=== PATIENT | female | born 1930 | race Caucasian/White ===

== ENCOUNTER 2016-08-31 18:16 | Emergency (ER) | payer MEDICARE, BC ==
[~2016-08-31] VITALS: Ht 144.8 cm; Wt 78.9 kg
[2016-08-31] MEDS ORDERED: Norco 7.5mg/325mg tab ORAL ONE (19:15)
[2016-08-31 19:22] VITALS: BP 150/72
--- NOTE | 2016-08-31 22:10 | Emergency Room Report ---
History of Present Illness General Chief Complaint: Multiple Trauma/Fall Source: Patient (Tatianna Soriano) Present Illness HPI 84-year-old female presents emergency department complaining of 10 out of 10 in severity left anterior lower rib cage pain and tenderness status post mechanical trip and fall. She also reports right-sided neck tightness. Patient states this is very mild in comparison to her left-sided rib cage pain. Patient reports pain is worsened with taking deep breaths. This morning patient took half of a 5 mg Percocet which provided little to no relief. Denies numbness tingling or loss of sensation or gross motor movements of the extremities, incontinence of bowel or bladder. Denies CP, Palpitations, LOC, AMS , dizziness, Changes in Vision, Sensation, paresthesias, or a sudden severe headache. (Tatianna Soriano) Allergies: Coded Allergies: PENICILLINS (Verified Allergy, Unknown, 08/31/16) Patient History Past Medical History: see triage record Past Surgical History: none Pertinent Family History: none Now: No Reviewed Nursing Documentation: PMH: Agreed, PSxH: Agreed (Tatianna Soriano) Nursing Documentation-PMH Past Medical History: No History, Except For Hx Hypertension: Yes (Tatianna Soriano) Review of Systems All Other Systems: negative except mentioned in HPI (Tatianna Soriano) Physical Exam Vital Signs Date Time Temp Pulse Resp B/P Pulse Ox O2 Delivery O2 Flow Rate FiO2 08/31/16 18:33 98.4 80 18 165/75 99 Room Air Sp02 EP Interpretation: reviewed, normal General Appearance: no apparent distress, alert, GCS 15, non-toxic Head: normocephalic, atraumatic Eyes: bilateral eye PERRL, bilateral eye normal inspection ENT: hearing grossly normal, normal pharynx, no angioedema, normal voice Neck: full range of motion, no bony tend, supple/symm/no masses, tender lateral - right TTP, in the musculature region, no midline spinous process pain , no obvious deformity, pt. has FROM Respiratory: lungs clear, normal breath sounds, speaking full sentences, other - left lower rib cage Tenderness to palpation, no crepitus, no flail chest, no bruising noted. Cardiovascular #1: regular rate, rhythm, no edema Gastrointestinal: non tender, soft, no guarding, no rebound Rectal: deferred Musculoskeletal: back normal, gait/station normal, normal range of motion, tender - left lower anterior rib ttp. Neurologic: alert, oriented x3, responsive, motor strength/tone normal, sensory intact, speech normal Psychiatric: judgement/insight normal, memory normal, mood/affect normal, no suicidal/homicidal ideation Reflexes: 4+ bicep (R), 4+ bicep (L), 4+ tricep (R), 4+ tricep (L), 4+ knee (R) , 4+ knee (L) Skin: normal color, no rash, warm/dry, well hydrated (Tatianna Soriano) Medical Decision Making PA Attestation Dr. Hebert is my supervising Physician whom patient management has been discussed with. (Tatianna Soriano) Diagnostic Impression: Primary Impression: Fracture of seven ribs of left side Qualified Codes: S22.42XA - Multiple fractures of ribs, left side, initial encounter for closed fracture ER Course Pt. presents to the ED c/o Left lower rib pain 10/10 s/p mechanical trip and fall. Pt also reports right sided neck tightness, states rib pain is most prominent symptom. Denies midline posterior neck pain. Ddx considered but are not limited to Rib Fracture, dislocation, rib cage contusion Vital signs: are WNL, pt. is afebrile H&PE are most consistent with rib musculoskeletal injury will r/o fractures with imaging. ORDERS: - X-ray Left rib Series with PA view - Pending radiology reviews ED INTERVENTIONS: - Hersey PO DISCHARGE: At this time pt. is stable for d/c to home. Will provide printed patient care instructions, and any necessary prescriptions. Care plan and follow up instructions have been discussed with the patient prior to discharge. (Tatianna Soriano P.AGeorgette) ER Course Received signout from BC Soriano to followup rib series Fracture of left 7th rib. No PTX or pleural effusion Rx Lidoderm patch and Rx Hersey for severe pain PMD followup DC home (JOSHUA HERNANDEZ M.D.) Last Vital Signs Date Time Temp Pulse Resp B/P Pulse Ox O2 Delivery O2 Flow Rate FiO2 08/31/16 20:32 98.4 08/31/16 19:22 88 18 150/72 99 Room Air (Tatianna Soriano) Status: improved (JOSHUA HERNANDEZ M.D.) Disposition: HOME, SELF-CARE Scripts Lidocaine (Lidoderm) 1 Each Adh..patch 1 PATCH TOPIC DAILY for 7 Days, #7 PATCH 0 Refills Patch(es) may remain in place for up to 12 hours in any 24-hour period. Prov: JOSHUA HERNANDEZ M.D. 08/31/16 Oxycodone/Acetaminophen 5-325* (PERCOCET 5-325 MG TABLET*) 1 Each Tablet 1 TAB ORAL BID Y for Severe Breakthru Pain (>7) for 3 Days, #10 TAB 0 Refills Prov: JOSUHA HERNANDEZ M.D. 08/31/16 Tatianna Soriano Aug 31, 2016 22:10 JOSHUA HERNANDEZ M.D. Aug 31, 2016 22:37
[2016-08-31] MEDS ORDERED: PERCOCET 5-3251 EACH ORAL (22:21)
[2016-08-31] MEDS ORDERED: LIDODERM700 M1 TOPIC (22:21)
[2016-08-31 22:30] VITALS: BP 149/65
[2016-08-31 22:35] VITALS: BP 149/65
--- NOTE | 2016-09-01 13:41 | Diagnostic Imaging Report ---
\H\CHEST RADIOGRAPH\N\ Indication: Chest pain Technique: Single portable AP view of the chest. Findings: Comparison: None. Suboptimal inspiration and image quality, lordotic projection of the image limiting evaluation. Apparent cephalad subluxation of both humeri narrowing respective subacromial spaces. Apparent widening of left paratracheal soft tissues deviating trachea to right. The remaining bones and extra pulmonary soft tissues, remainder of the cardiomediastinal silhouette, pulmonary vasculature visualized portions of pulmonary parenchyma and pleural surfaces are unremarkable. IMPRESSION: No evidence of acute cardio pulmonary disease, with limitation as described. Upright PA and lateral chest radiographs with better inspiratory effort and optimal technique recommended for more complete evaluation. Apparent widening of the left paratracheal soft tissues with mass effect, may represent ectatic vasculature, enlarged thyroid/mass, or other pathology. Further evaluation warranted. 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 \H\LEFT RIB RADIOGRAPHS\N\ Indications: Left rib cage pain. Technique: 4 views of the left ribs. Findings: Comparison: None. Suboptimal image quality limits evaluation. Apparent fracture anterior aspect left eighth rib. No additional fracture, lytic destruction, periosteal reaction, or other acute skeletal changes are identified. The overlying chest wall soft tissues, underlying pleura and pulmonary parenchyma are unremarkable. IMPRESSION: Suggestion of acute fracture anterior aspect left eighth rib. Correlate clinically.
== END 2016-08-31 22:35 | disposition home or self-care (01) ==
LOC: EMR 22:15
DX: S22.42XA Multiple fractures of ribs, left side, initial encounter for closed fracture (principal); W01.0XXA Fall on same level from slipping, tripping and stumbling without subsequent striking against object, initial encounter; Y93.9 Activity, unspecified; Y92.9 Unspecified place or not applicable; Z88.0 Allergy status to penicillin; I10 Essential (primary) hypertension; M54.2 Cervicalgia
CPT/HCPCS: 99284

== ENCOUNTER 2018-10-11 19:03 | Emergency (ER) | payer MEDICARE, BC ==
[~2018-10-11] VITALS: Ht 137.2 cm; Wt 85.3 kg
[~2018-10-11 19:03] MED LIST: LIDODERM700 M1 TOPIC; PERCOCET 5-3251 EACH ORAL
[2018-10-11] MEDS ORDERED: TRAMADOL HCL100 M2 ORAL (19:19)
[2018-10-11] MEDS ORDERED: HYDRALAZIN20 MG/1 ML IJ (19:19)
[2018-10-11] MEDS ORDERED: BYSTOLIC20 MG ORAL (19:19)
[2018-10-11] MEDS ORDERED: LEXAPRO5 MG ORAL (19:19)
[2018-10-11] MEDS ORDERED: NORCO 5-325 TA1 EACH ORAL (19:19)
[2018-10-11] MEDS ORDERED: SPIRONOLACTONE1 GM MC (19:19)
[2018-10-11] MEDS ORDERED: CLONIDINE HCL0.2 MG PO (19:19)
[2018-10-11] MEDS ORDERED: LOVASTATIN40 MG ORAL (19:19)
[2018-10-11] MEDS ORDERED: METOLAZONE2.5 MG PO (19:19)
[2018-10-11] MEDS ORDERED: ASPIR 8181 MG ORAL (19:19)
[2018-10-11] MEDS ORDERED: FUROSEMIDE20 M1 ORAL (19:19)
--- NOTE | 2018-10-11 19:22 | NUR ---
ED Nurse Note: Received report. Pt from home, AAOx4, ambulatory, c/o pain on left side s/p fall 4 hrs ago. Pt's caregiver states she has bruising on left backside and left arm. Will assess and carry out ER MD's orders.
--- NOTE | 2018-10-11 19:29 | Emergency Room Report ---
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 reports mechanical fall as well Patient however was having evidence of increased bruising on the left hip and with the pain there were concerning came to the ER Denies any chest pain denies any head injury denies any focal weakness Denies any vomiting or diarrhea Allergies: Coded Allergies: PENICILLINS (Verified Allergy, Unknown, 08/31/16) Patient History Past Medical History: see triage record Pertinent Family History: none Last Menstrual Period: NA Now: No : 2 Para: 2 Reviewed Nursing Documentation: PMH: Agreed; PSxH: Agreed Nursing Documentation-PMH Hx Cardiac Problems: Yes - CHF Hx Hypertension: Yes Hx Diabetes: Yes Hx Neurological Problems: Yes - sciatica at left side Review of Systems All Other Systems: negative except mentioned in HPI Physical Exam Vital Signs Date Time Temp Pulse Resp B/P (MAP) Pulse Ox O2 Delivery O2 Flow Rate FiO2 10/11/18 19:05 98.1 72 17 111/65 (80) 96 Room Air Sp02 EP Interpretation: reviewed, normal General Appearance: no apparent distress Head: normocephalic, atraumatic Eyes: bilateral eye PERRL, bilateral eye EOMI ENT: hearing grossly normal, normal pharynx Neck: supple Respiratory: lungs clear, normal breath sounds, no retraction Cardiovascular #1: regular rate, rhythm Gastrointestinal: non tender, soft Musculoskeletal: other - Evidence of large hematoma left hip region, small hematoma left posterior scapular region no midline tenderness Neurologic: alert, oriented x3, responsive Skin: other - Ecchymosis and bruising as noted above, more extensive left hip region Lymphatic: no adenopathy Medical Decision Making Labs Test 10/11/18 20:15 White Blood Count 13.1 K/UL (4.8-10.8) Red Blood Count 3.54 M/UL (4.20-5.40) Hemoglobin 11.5 G/DL (12.0-16.0) Hematocrit 32.0 % (37.0-47.0) Mean Corpuscular Volume 90 FL (80-99) Mean Corpuscular Hemoglobin 32.6 PG (27.0-31.0) Mean Corpuscular Hemoglobin Concent 36.1 G/DL (32.0-36.0) Red Cell Distribution Width 11.3 % (11.6-14.8) Platelet Count 167 K/UL (150-450) Mean Platelet Volume 7.0 FL (6.5-10.1) Neutrophils (%) (Auto) 73.4 % (45.0-75.0) Lymphocytes (%) (Auto) 14.2 % (20.0-45.0) Monocytes (%) (Auto) 11.2 % (1.0-10.0) Eosinophils (%) (Auto) 0.5 % (0.0-3.0) Basophils (%) (Auto) 0.7 % (0.0-2.0) Prothrombin Time 10.0 SEC (9.30-11.50) Prothromb Time International Ratio 0.9 (0.9-1.1) Activated Partial Thromboplast Time 18 SEC (23-33) Sodium Level 138 MMOL/L (136-145) Potassium Level 3.0 MMOL/L (3.5-5.1) Chloride Level 97 MMOL/L (98-107) Carbon Dioxide Level 35 MMOL/L (21-32) Anion Gap 6 mmol/L (5-15) Blood Urea Nitrogen 55 mg/dL (7-18) Creatinine 2.2 MG/DL (0.55-1.30) Estimat Glomerular Filtration Rate mL/min (>60) Glucose Level 144 MG/DL (74-106) Calcium Level 9.6 MG/DL (8.5-10.1) Last Vital Signs Date Time Temp Pulse Resp B/P (MAP) Pulse Ox O2 Delivery O2 Flow Rate FiO2 10/11/18 19:05 98.1 72 17 111/65 (80) 96 Room Air Sara Hebert DO Oct 11, 2018 19:29
[2018-10-11 19:43] VITALS: BP 115/63
--- NOTE | 2018-10-11 20:24 | NUR ---
ED Nurse Note: Pt's caregiver told me pt took 50mg of Tramadol and two tylenol PO Rx around noon today 10/11/18. Pt asking for pain Rx now with pain 11/16. Will notify ER MD.
[2018-10-11 20:44] LABS: INR 0.9 (0.9-1.1)
[2018-10-11 20:45] LABS: BASOPHILS % (AUTO) 0.7 % (0.0-2.0); EOSINOPHILS % (AUTO) 0.5 % (0.0-3.0); HEMOGLOBIN 11.5 G/DL (12.0-16.0); LYMPHOCYTES % (AUTO) 14.2 % (20.0-45.0); MEAN CORPUSCULAR VOLUME 90 FL (80-99); MONOCYTES % (AUTO) 11.2 % (1.0-10.0); NEUTROPHILS % (AUTO) 73.4 % (45.0-75.0); PLATELET COUNT 167 K/UL (150-450); RED BLOOD COUNT 3.54 M/UL (4.20-5.40); RED CELL DISTRIBUTION WIDTH 11.3 % (11.6-14.8); WHITE BLOOD COUNT 13.1 K/UL (4.8-10.8)
[2018-10-11 20:47] LABS: ANION GAP 6 mmol/L (5-15); BLOOD UREA NITROGEN 55 mg/dL (7-18); CALCIUM 9.6 MG/DL (8.5-10.1); CARBON DIOXIDE 35 MMOL/L (21-32); CHLORIDE 97 MMOL/L (98-107); CREATININE 2.2 MG/DL (0.55-1.30); SODIUM 138 MMOL/L (136-145)
--- NOTE | 2018-10-11 21:35 | NUR ---
ED Nurse Note: Pt cleared by health care Provider for discharge. DC instructions/prescription was given and explained to pt's caregiver and they both verbalized understanding of teachings. All medical deviecs such as ID band and IV line removed. Pt is AAO x4, ambulatory and left with all personal belongings.
--- NOTE | 2018-10-12 10:02 | Diagnostic Imaging Report ---
Indication: Chest pain. Trauma Technique: Continuous helical transaxial imaging of the chest was obtained from the thoracic inlet to the upper abdomen. No intravenous contrast was administered. Coronal 2-D reformats were also obtained. Total Dose length Product (DLP): 898.[address] Dose Index Volume (CTDIvol): 27.17 mGy Comparison: none Findings: There are moderate compression fracture deformities of the T6 and T7 vertebra which appears sclerotic. These are likely old. There is a compression fracture of the superior endplate of T4 also probably old. No soft tissue swelling is demonstrated. Please correlate clinically with regard to the injury described. At the right lung base there is a area of platelike atelectasis and more ill-defined density which may be scarring. Small amount of bronchiectasis is noted. Coronary and aortic calcifications are noted consistent with atherosclerotic disease. There are old bilateral rib fractures. No acute fractures are identified. Visualized part of the upper abdomen demonstrates small fatty lesions within both kidneys consistent with angiomyolipomata. These are not fully evaluated on the current study. There is a hiatal hernia. There is a 2.5 x 1.6 cm hypodensity in the right thyroid lobe. IMPRESSION: No acute injury identified. Old fractures involving the T4, T6 and T7 vertebra. Theoretically acute on chronic injury could be present. Correlate clinically. Multiple old rib fractures. Right posterior basilar atelectasis and scarring. Atherosclerotic disease. 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 Hiatal hernia. Right thyroid nodule. Consider ultrasound evaluation. [facility] has communicated the preliminary results to the Emergency Department. Their findings are largely concordant with this report. The CT scanner at [facility] is accredited by the [employer] and the scans are performed using dose optimization techniques as appropriate to a performed exam including Automatic Exposure control.
--- NOTE | 2018-10-12 10:14 | Diagnostic Imaging Report ---
Indication: Abdominal pain Technique: Continuous helical transaxial imaging of the pelvis was obtained from the iliac crest to the pubic symphysis. Coronal 2-D reformats were also obtained. Study obtained in a Siemens sensation [address] Intravenous non-ionic contrast was administered. Total Dose length Product (DLP): 671.[address] Dose Index Volume (CTDIvol): 22.28 mGy Comparison: None Findings: There is evidence of a soft tissue contusion lateral to the left hip with subcutaneous reticulation and a partially imaged superficial subcutaneous hematoma just deep to the skin measuring on this exam about 4 x 11 cm. The lateral part of the hematoma is not imaged as it is beyond the field of view. No acute fractures identified. Anterolisthesis demonstrated at L4-5 and L5-S1 with degenerative disc disease vacuum phenomena and facet sclerosis. No malalignment of the hips identified. There is a right inguinal hernia containing fat. Arterial vascular calcifications are present. Uterus is absent. IMPRESSION: No acute fracture. Superficial left lateral hematoma. Other incidental findings as above The CT scanner at [facility] is accredited by the [employer] and the scans are performed using dose optimization techniques as appropriate to a performed exam including Automatic Exposure control.
== END 2018-10-11 21:35 | disposition home or self-care (01) ==
LOC: EMR 21:32 → EDBD 21:32 → EMR 21:35
DX: M25.552 Pain in left hip (principal); Z88.0 Allergy status to penicillin; E11.9 Type 2 diabetes mellitus without complications; I11.0 Hypertensive heart disease with heart failure; I50.9 Heart failure, unspecified; S70.02XA Contusion of left hip, initial encounter; W19.XXXA Unspecified fall, initial encounter; Y93.9 Activity, unspecified; Y92.9 Unspecified place or not applicable
CPT/HCPCS: 36415; 71250; 72192; 80048; 85025; 85610; 85730; 99284; J8499

== ENCOUNTER 2019-01-14 18:59 | Emergency (ER) | payer MEDICARE, BC ==
[~2019-01-14] VITALS: Ht 152.4 cm; Wt 84.8 kg
[~2019-01-14 18:59] MED LIST changes: +ASPIR 8181 MG ORAL; +BYSTOLIC20 MG ORAL; +CLONIDINE HCL0.2 MG PO; +FUROSEMIDE20 M1 ORAL; +HYDRALAZIN20 MG/1 ML IJ; +LEXAPRO5 MG ORAL; +LOVASTATIN40 MG ORAL; +METOLAZONE2.5 MG PO; +NORCO 5-325 TA1 EACH ORAL; +SPIRONOLACTONE1 GM MC; +TRAMADOL HCL100 M2 ORAL
[2019-01-14 19:16] VITALS: BP 123/76
--- NOTE | 2019-01-14 19:17 | NUR ---
ED Nurse Note: Pt ambulated to ED from home c/o sore throat x2 days as well as reported 100.4 fever at home, pt took 1k mg of tylenol at 1800, fever has since subsided. Pt denies pain at this time. VSS, Pt is A&Ox4
--- NOTE | 2019-01-14 19:33 | Emergency Room Report ---
History of Present Illness General Chief Complaint: Sore Throat Source: Patient Present Illness HPI 87 YO is brought to the emergency department by caregiver for 7 out of 10 in severity sore throat x 3 days with fever of 101 last night. Patient states that her throat has began to resolve however she continues to have moderate amount of mucus stuck in her throat and she is now having a cough. Pt. also reports right ear discomfort x 1 day. Patient with history of CHF and peripheral edema as well as high blood pressure and rheumatoid arthritis. She denies feeling short of breath, dyspnea, or orthopnea. She denies neck pain/ stiffness, abdominal pain or urinary symptoms. Per caregiver, pt. was in SNF rehab 10 weeks ago. Pt. received injections to the knees bilaterally for her OA 2 days ago. Denies knee pain, swelling, tenderness or erythema. Denies CP, Palpitations, LOC, AMS, dizziness, Changes in Vision, Sensation, paresthesias, or a sudden severe headache. Pt. denies worsening of pedal edema. She takes torsemide, spironolactone and metolazone. Per covering machine operator pt. has appt. with PCP on Wednesday. Pt. denies weakness or increased fatigue. No other aggravating or relieving factors at this time. Allergies: Coded Allergies: PENICILLINS (Verified Allergy, Unknown, 08/31/16) Patient History Past Medical History: see triage record Past Surgical History: none Pertinent Family History: none Last Menstrual Period: n/a Now: No Immunizations: UTD Reviewed Nursing Documentation: PMH: Agreed; PSxH: Agreed Nursing Documentation-PMH Hx Cardiac Problems: Yes - CHF Hx Hypertension: Yes Hx Diabetes: Yes Hx Neurological Problems: Yes - Rhumatoid Arthritis Review of Systems All Other Systems: negative except mentioned in HPI Physical Exam Vital Signs Date Time Temp Pulse Resp B/P (MAP) Pulse Ox O2 Delivery O2 Flow Rate FiO2 01/14/19 19:04 98.2 72 18 123/76 (92) 98 Room Air Sp02 EP Interpretation: reviewed, normal General Appearance: no apparent distress, alert, GCS 15, non-toxic Head: normocephalic, atraumatic Eyes: bilateral eye normal inspection, bilateral eye PERRL ENT: hearing grossly normal, normal voice, TMs + canals normal, uvula midline, moist mucus membranes, pharyngeal erythema, other - no tonsillar swelling or exudates Neck: full range of motion, no meningismus Respiratory: chest non-tender, lungs clear, normal breath sounds, no rhonchi, no respiratory distress, no accessory muscle use, no wheezing, speaking full sentences Cardiovascular #1: regular rate, rhythm, no JVD, edema - 2+ non-pitting edema of bilateral LE's from Knees down Musculoskeletal: back normal, gait/station normal, normal range of motion, non- tender Neurologic: alert, oriented x3, responsive, motor strength/tone normal, sensory intact, speech normal, grossly normal Psychiatric: judgement/insight normal Lymphatic: no adenopathy Medical Decision Making PA Attestation Dr. Mayorga is my supervising Physician whom patient management has been discussed with. Diagnostic Impression: Primary Impression: Atypical pneumonia Additional Impression: Sore throat ER Course 87 YO is brought to the emergency department by caregiver for 7 out of 10 in severity sore throat x 3 days with fever of 101 last night. Patient states that her throat has began to resolve however she continues to have moderate amount of mucus stuck in her throat and she is now having a cough. Pt. also reports right ear discomfort x 1 day. Patient with history of CHF and peripheral edema as well as high blood pressure and rheumatoid arthritis. She denies feeling short of breath, dyspnea, or orthopnea. She denies neck pain/ stiffness, abdominal pain or urinary symptoms. Per caregiver, pt. was in SNF rehab 10 weeks ago. Pt. received injections to the knees bilaterally for her OA 2 days ago. Denies knee pain, swelling, tenderness or erythema. Denies CP, Palpitations, LOC, AMS, dizziness, Changes in Vision, Sensation, paresthesias, or a sudden severe headache. Pt. denies worsening of pedal edema. She takes torsemide, spironolactone and metolazone. Per covering machine operator pt. has appt. with PCP on Wednesday. Pt. denies weakness or increased fatigue. No other aggravating or relieving factors at this time. Ddx considered but are not limited to URI, pneumonia, CHF,PE, strep pharyngitis , laryngitis, RELOCATION COUNSELOR, meningitis, reactive airway just to name a few. Vital signs: Pt. is afebrile, the remaining VS are WNL H&PE are most consistent with URI- no meningeal signs, oropharynx does not have exudates. lungs are CTA. Pt. is not in acute distress, non-toxic in appearance. Not having difficulty breathing and is able to clearly articulate thoughts/concerns. ORDERS: none required at this time, the diagnosis is clinical ED INTERVENTIONS: None required at this time. - Given pt. hx of multiple comorbidities due to cc cough and fever, standard of care is to provide abx. Pt. has follow up scheduled already. I feel she is stable for outpatient treatment with close follow up. Pt. has caregiver as well. Both pt. and covering machine operator are given strict ED return precautions such as persistent fever, difficulty breathing/ wheezing, or increased swelling of the LE's. DISCHARGE: At this time pt. is stable for d/c to home. Will provide printed patient care instructions, and any necessary prescriptions. Care plan and follow up instructions have been discussed with the patient prior to discharge. Last Vital Signs Date Time Temp Pulse Resp B/P (MAP) Pulse Ox O2 Delivery O2 Flow Rate FiO2 01/14/19 19:16 98.2 68 18 123/76 98 Room Air Disposition: HOME, SELF-CARE Condition: Stable Scripts Guaifenesin/Dextromethorphan (HM ADULT TUSSIN DM SYRUP) 118 Ml Syrup 5 ML PO Q6HR, #120 ML Prov: Tatianna Soriano 01/14/19 Doxycycline Monohydrate* (DOXYCYCLINE MONOHYDRATE*) 100 Mg Capsule 100 MG ORAL TWICE A DAY for 7 Days, #14 CAP 0 Refills Prov: Tatianna Soriano 01/14/19 Patient Instructions: Peripheral Edema, Upper Respiratory Infection, Adult, [id number] Additional Instructions: Take medications as directed. Follow up with a Primary Care Provider in 3-5 days, even if your symptoms have resolved. --Please review list of primary care clinics, if you do not already have a primary care provider Return sooner to ED if new symptoms occur, or current symptoms become worse. - Please note that this Emergency Department Report was dictated using [employer] technology software, occasionally this can lead to erroneous entry secondary to interpretation by the dictation equipment. Tatianna Soriano Jan 14, 2019 19:33
[2019-01-14] MEDS ORDERED: [UNRECOGNIZED DRUG - OTHER] PO (19:42)
[2019-01-14] MEDS ORDERED: DOXYCYCLINE MO100 MG ORAL (19:42)
[2019-01-14 19:45] VITALS: BP 123/76
--- NOTE | 2019-01-14 19:49 | NUR ---
ED Discharge Note: PRESCRIPTIONS AND DISCHARGE PAPERWORK EXPLAINED TO PT. PT VERBALIZES UNDERSTANDING AND ALL QUESTIONS ANSWERED. PRESCRIPTIONS AND DISCHARGE PAPERWORK GIVEN TO PT AND ID WRISTBAND REMOVED. PT WALKED OUT OF ER WITH STEADY GAIT AND ALL BELONGINGS.
== END 2019-01-14 19:45 | disposition home or self-care (01) ==
LOC: EMR 19:23
DX: J18.9 Pneumonia, unspecified organism (principal); J02.9 Acute pharyngitis, unspecified; Z88.0 Allergy status to penicillin; I11.0 Hypertensive heart disease with heart failure; I50.9 Heart failure, unspecified; E11.9 Type 2 diabetes mellitus without complications; M06.9 Rheumatoid arthritis, unspecified
CPT/HCPCS: 99282

== ENCOUNTER 2019-03-11 16:22 | Inpatient (IN) | payer MEDICARE, BC ==
[~2019-03-11] VITALS: Ht 144.8 cm; Wt 78.5 kg
[~2019-03-11 16:22] MED LIST changes: +DOXYCYCLINE MO100 MG ORAL; +[UNRECOGNIZED DRUG - OTHER] PO
[2019-03-11 16:45] VITALS: BP 135/70
--- NOTE | 2019-03-11 16:45 | NUR ---
ED Nurse Note: Patient walked into ED accompanied by caregiver c/o skin rash/ abscess located towards her right shoulder, no open lesions noten on her skin however she presents with redness that goes from the lower part of her right arm to her right shoulder, patients skin is intact, rates her pain a 8/10 pain. patient does have wrinkled skin that is very thin. patient placed on a campus monitor, will continue to monitor
[2019-03-11] MEDS ORDERED: Bacitracin Oint UD TOPIC ONE (17:00)
[2019-03-11] MEDS ORDERED: DiphenhydrAMINE 50mg/ml Inj IVP ONE (17:00)
[2019-03-11] MEDS ORDERED: Piperacillin/Tazobactam 3.375 GM in NS 110 ML IVPB ONE (17:00)
[2019-03-11] MEDS ORDERED: Vancomycin 1 GM in NS 275 ML IV ONE (17:00)
[2019-03-11] MEDS ORDERED: Tetanus/Diptheria/Pertussis IM ONE (17:00)
--- NOTE | 2019-03-11 17:28 | NUR ---
ED Nurse Note: miroslava-Krystal
[2019-03-11 17:35] LABS: BASOPHILS % (AUTO) 1.3 % (0.0-2.0); HEMOGLOBIN 12.9 G/DL (12.0-16.0); LYMPHOCYTES % (AUTO) 19.9 % (20.0-45.0); MEAN CORPUSCULAR VOLUME 91 FL (80-99); MONOCYTES % (AUTO) 12.6 % (1.0-10.0); NEUTROPHILS % (AUTO) 62.2 % (45.0-75.0); PLATELET COUNT 191 K/UL (150-450); RED BLOOD COUNT 3.95 M/UL (4.20-5.40); RED CELL DISTRIBUTION WIDTH 12.9 % (11.6-14.8); WHITE BLOOD COUNT 8.5 K/UL (4.8-10.8)
--- NOTE | 2019-03-11 17:39 | Emergency Room Report ---
History of Present Illness General Chief Complaint: Skin Rash/Abscess Source: Patient, Caregiver Present Illness HPI Patient presents with infection of the right shoulder. She was seen at a clinic and given a prescription for Keflex. She is been taking that medicine. She denies any fevers or chills. She denies pain in the area but says that its itching. She is not sure when her last tetanus vaccination was. The redness seems to be swelling even though she is taking Keflex. Patient has significant ankle edema. She denies any calf tenderness. She is on Lasix and potassium. She also has significant bruising in many areas of her body. According to her med recon she is not taking blood thinners at this time aside from aspirin. The patient has a history of diabetes and also rheumatoid arthritis. Apparently she was admitted at [facility] recently with problems with her heart and her kidneys. No sore throat, chest pain, palpitations, nausea, vomiting, diarrhea, dysuria, abdominal pain, shortness of breath, depression, anxiety, visual changes, dizziness, headache. 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 Last Menstrual Period: N/A Reviewed Nursing Documentation: PMH: Agreed; PSxH: Agreed Nursing Documentation-PMH Hx Cardiac Problems: Yes - CHF Hx Hypertension: Yes Hx Diabetes: Yes History Of Psychiatric Problem: Yes Hx Neurological Problems: Yes - Rhumatoid Arthritis Review of Systems All Other Systems: negative except mentioned in HPI Physical Exam Vital Signs Date Time Temp Pulse Resp B/P (MAP) Pulse Ox O2 Delivery O2 Flow Rate FiO2 03/11/19 16:38 98.2 87 18 146/68 (94) 98 Room Air Sp02 EP Interpretation: reviewed, normal General Appearance: no apparent distress, alert, GCS 15, non-toxic, Chronically Ill Head: normocephalic Eyes: bilateral eye normal inspection, bilateral eye PERRL, bilateral eye EOMI ENT: moist mucus membranes Neck: supple Respiratory: lungs clear, normal breath sounds Cardiovascular #1: regular rate, rhythm, edema - 3+ pitting bilateral lower extremities Cardiovascular #2: 2+ radial (R), 2+ dorsalis pedis (R), 2+ dorsalis pedis (L) Gastrointestinal: normal inspection, normal bowel sounds, non tender, no mass, non-distended, overweight Genitourinary: no CVA tenderness Musculoskeletal: back normal, normal range of motion, no calf tenderness, Bal 's Sign negative Neurologic: alert, motor strength/tone normal, sensory intact, cerebellar normal, speech normal, oriented - X2 Psychiatric: mood/affect normal Skin: Ecchymosis/Bruising - Legs arms, other - Erythematous area right shoulder anteriorly with an area of induration of the lateral chest. No fluctuance Medical Decision Making Diagnostic Impression: Primary Impression: Cellulitis of right shoulder Additional Impressions: Failure of outpatient antibiotics Right heart failure Qualified Codes: I50.812 - Chronic right heart failure Renal insufficiency Multiple bruises ER Course Patient presents with cutaneous infection right shoulder and breast area despite outpatient treatment with Keflex. Differential includes extent organism , abscess, bacteremia, atypical organism, MRSA amongst others. The patient will be evaluated with EKG, chest x-ray and labs. The lesion itself does not feel fluctuant and therefore this appears more like cellulitis. The fact that she is on Keflex and the infection is worsening IV antibiotics are indicated. She will not receive IV hydration as she appears to be total body sodium overloaded. She will receive a dose of Benadryl. Tetanus is indicated. Sinus rhythm with first-degree AV block. Chest x-ray with increased interstitial tyler. No infiltrates. Labs with normal white count. Elevated BUN and creatinine. Elevated BNP. Patient tolerated antibiotics and with decreased itching. Discussed with patient's son. Admit MedSurdaja Ramos. Laboratory Tests Test 03/11/19 17:20 03/11/19 18:20 White Blood Count 8.5 K/UL (4.8-10.8) Red Blood Count 3.95 M/UL (4.20-5.40) L Hemoglobin 12.9 G/DL (12.0-16.0) Hematocrit 36.0 % (37.0-47.0) L Mean Corpuscular Volume 91 FL (80-99) Mean Corpuscular Hemoglobin 32.5 PG (27.0-31.0) H Mean Corpuscular Hemoglobin Concent 35.7 G/DL (32.0-36.0) Red Cell Distribution Width 12.9 % (11.6-14.8) Platelet Count 191 K/UL (150-450) Mean Platelet Volume 7.1 FL (6.5-10.1) Neutrophils (%) (Auto) 62.2 % (45.0-75.0) Lymphocytes (%) (Auto) 19.9 % (20.0-45.0) L Monocytes (%) (Auto) 12.6 % (1.0-10.0) H Eosinophils (%) (Auto) 4.0 % (0.0-3.0) H Basophils (%) (Auto) 1.3 % (0.0-2.0) Prothrombin Time 10.0 SEC (9.30-11.50) Prothrombin Time INR 0.9 (0.9-1.1) PTT 18 SEC (23-33) L Sodium Level 139 MMOL/L (136-145) Potassium Level 4.0 MMOL/L (3.5-5.1) Chloride Level 98 MMOL/L (98-107) Carbon Dioxide Level 32 MMOL/L (21-32) Anion Gap 10 mmol/L (5-15) Blood Urea Nitrogen 97 mg/dL (7-18) H Creatinine 2.0 MG/DL (0.55-1.30) H Estimate Glomerular Filtration Rate mL/min (>60) Glucose Level 132 MG/DL (74-106) H Lactic Acid Level 1.60 mmol/L (0.4-2.0) Calcium Level 9.4 MG/DL (8.5-10.1) Magnesium Level 2.5 MG/DL (1.8-2.4) H Total Bilirubin 0.5 MG/DL (0.2-1.0) Aspartate Amino Transferase (AST) 28 U/L (15-37) Alanine Aminotransferase (ALT) 29 U/L (12-78) Alkaline Phosphatase 40 U/L (46-116) L Total Creatine Kinase 24 U/L (26-308) L Troponin I 0.001 ng/mL (0.000-0.056) Pro-B-Type Natriuretic Peptide 1067 pg/mL (0-125) H Total Protein 6.7 G/DL (6.4-8.2) Albumin 3.9 G/DL (3.4-5.0) Globulin 2.8 g/dL Albumin/Globulin Ratio 1.4 (1.0-2.7) Urine Color Pale yellow Urine Appearance Clear Urine pH 6 (4.5-8.0) Urine Specific [place] 1.010 (1.005-1.035) Urine Protein Negative (NEGATIVE) Urine Glucose (UA) Negative (NEGATIVE) Urine Ketones Negative (NEGATIVE) Urine Blood Negative (NEGATIVE) Urine Nitrite Negative (NEGATIVE) Urine Bilirubin Negative (NEGATIVE) Urine Urobilinogen Normal MG/DL (0.0-1.0) Urine Leukocyte Esterase 1+ (NEGATIVE) H Urine RBC 0 /HPF (0 - 2) Urine WBC 0-2 /HPF (0 - 2) Urine Squamous Epithelial Cells None /LPF (NONE/OCC) Urine Bacteria None /HPF (NONE) EKG Diagnostic Results Rate: normal Rhythm: NSR ST Segments: no acute changes - First degree AV block and LVH Rhythm Strip Diag. Results EP Interpretation: yes Rhythm: NSR, no PVC's, no ectopy Chest X-Ray Diagnostic Results Chest X-Ray Diagnostic Results : Chest X-Ray Ordered: Yes # of Views/Limited/Complete: 1 View Indication: Other EP Interpretation: Yes Interpretation: no consolidation, no effusion Impression: No acute disease Electronically Signed by: Electronically signed by Mani Beyer MD Last Vital Signs Date Time Temp Pulse Resp B/P (MAP) Pulse Ox O2 Delivery O2 Flow Rate FiO2 03/11/19 22:38 140/63 03/11/19 20:57 97.9 85 20 95 03/11/19 20:10 Room Air Status: improved Disposition: ADMITTED INPATIENT Condition: Serious Mani Beyer MD Mar 11, 2019 17:39
[2019-03-11 17:47] LABS: ANION GAP 10 mmol/L (5-15); BLOOD UREA NITROGEN 97 mg/dL (7-18); CALCIUM 9.4 MG/DL (8.5-10.1); CARBON DIOXIDE 32 MMOL/L (21-32); CHLORIDE 98 MMOL/L (98-107); SODIUM 139 MMOL/L (136-145)
[2019-03-11 17:57] LABS: ALANINE AMINOTRANSFERASE 29 U/L (12-78); ALBUMIN 3.9 G/DL (3.4-5.0); ALBUMIN/GLOBULIN RATIO 1.4 (1.0-2.7); ALKALINE PHOSPHATASE 40 U/L (46-116); ASPARTATE AMINO TRANSFERASE 28 U/L (15-37); BILIRUBIN,TOTAL 0.5 MG/DL (0.2-1.0); CREATINE KINASE 24 U/L (26-308)
[2019-03-11 18:21] LABS: INR 0.9 (0.9-1.1)
--- NOTE | 2019-03-11 18:30 | NUR ---
ED Nurse Note: Patient in bed accompanied by caregiver, waiting for room assignment
[2019-03-11 18:56] LABS: APPEARANCE,URINE CLEAR; BILIRUBIN, URINE NEGATIVE (NEGATIVE); COLOR,URINE PALE YELLOW; GLUCOSE, URINE (UA) NEGATIVE (NEGATIVE); KETONES,URINE NEGATIVE (NEGATIVE); LEUKOCYTE ESTERASE ,URINE 1+ (NEGATIVE); NITRITE,URINE NEGATIVE (NEGATIVE); PH,URINE 6 (4.5-8.0); PROTEIN,URINE NEGATIVE (NEGATIVE); UROBILINOGEN,URINE NORMAL MG/DL (0.0-1.0)
--- NOTE | 2019-03-11 19:15 | NUR ---
HAND-OFF: Report given to LISA Baum.
[2019-03-11] MEDS ORDERED: Guaifenesin/DM 10ml syrup ORAL PRN (20:00)
[2019-03-11] MEDS ORDERED: oxyCODONE HCL/Acetaminophen 5/325mg ORAL PRN (20:00)
[2019-03-11] MEDS ORDERED: HYDROcodone/Acetamin 5/325 tab ORAL PRN (20:00)
--- NOTE | 2019-03-11 20:10 | NUR ---
ED Nurse Note: Patient was admited to MS unit due to right shoulder celullitis. Patient was transfered to, the unit via gurney with all belongings. AAO x4, VSS at this time, skin is warm to touch. abstract writer by patient's side.
--- NOTE | 2019-03-11 20:35 | NUR ---
NURSE NOTES: Received patient from ER via fabian. VSS. Caregiver Krystal at the bedside, health history and home medications stated by caregiver. IV access intact, patent, running IV Vanco from ER. Yellow socks on, bed low and locked, patient's own walker at bedside. Patient able to ambulate to bathroom with walker and stand by assist.
[2019-03-11 20:57] VITALS: BP 140/63
[2019-03-11] MEDS ORDERED: Vancomycin 500mg/D5W 110ml IVPB ONE ×2 (22:00)
[2019-03-11] MEDS ORDERED: Piperacillin/Tazobactam 3.375 GM in NS 110 ML IVPB SCH (22:00)
[2019-03-11] MEDS: Atorvastatin 20mg tab ORAL SCH (22:28)
[2019-03-11] MEDS: cloNIDine 0.2mg Tab ORAL SCH (22:38)
[2019-03-12] VITALS (7 sets, daily range): BP systolic 120–157; BP diastolic 56–68
--- NOTE | 2019-03-12 07:11 | NUR ---
HAND-OFF: Report given to LISA Valdivia.
--- NOTE | 2019-03-12 08:00 | NUR ---
NURSE NOTES: Patient is alert and oriented,respirations unlabored.Noted right arm with redness and swelling.dressing noted to the riht shoulde with scant drainage noted,will change dressing.Patient eating breakfast.Bed alarm on,call light within reach.
[2019-03-12] MEDS ORDERED: Tubing IV Secondary IV ONE (08:29)
[2019-03-12] MEDS ORDERED: NS 500ML ONE (08:29)
[2019-03-12 08:38] LABS: ANION GAP 9 mmol/L (5-15); BLOOD UREA NITROGEN 87 mg/dL (7-18); CALCIUM 8.8 MG/DL (8.5-10.1); CARBON DIOXIDE 33 MMOL/L (21-32); CHLORIDE 100 MMOL/L (98-107); CREATININE 2.1 MG/DL (0.55-1.30); PHOSPHORUS 4.3 MG/DL (2.5-4.9); POTASSIUM 2.9 MMOL/L (3.5-5.1); SODIUM 142 MMOL/L (136-145)
[2019-03-12 08:47] LABS: BASOPHILS % (AUTO) 0.8 % (0.0-2.0); EOSINOPHILS % (AUTO) 5.3 % (0.0-3.0); HEMATOCRIT 31.1 % (37.0-47.0); HEMOGLOBIN 10.9 G/DL (12.0-16.0); LYMPHOCYTES % (AUTO) 21.3 % (20.0-45.0); MEAN CORPUSCULAR VOLUME 91 FL (80-99); NEUTROPHILS % (AUTO) 57.6 % (45.0-75.0); PLATELET COUNT 156 K/UL (150-450); RED BLOOD COUNT 3.41 M/UL (4.20-5.40); RED CELL DISTRIBUTION WIDTH 12.8 % (11.6-14.8); WHITE BLOOD COUNT 6.9 K/UL (4.8-10.8)
--- NOTE | 2019-03-12 08:47 | History and Physical ---
History of Present Illness General Date patient seen: Mar 12, 2019 Reason for Hospitalization: Cellulitis Present Illness HPI This is a 88-year-old female with a past medical history of rheumatoid arthritis , CKD, HTN, cor pulmonale who presented to [facility] for 3-day history of a right shoulder erythema, warmth, itching. Failed outpatient Keflex. History provided by caregiver and patient at bedside. No trauma to the shoulder. She did have a prior ecchymoses to mid to distal half of right upper extremity. Denies any trauma. Has never had this before. According to her med recon she is not taking blood thinners at this time aside from aspirin. She was admitted at [facility] recently with problems with her heart and her kidneys. Denies sore throat, chest pain, palpitations, nausea, vomiting, diarrhea, dysuria, abdominal pain, shortness of breath, depression, anxiety, visual changes, dizziness, headache. In the ER the patient had a temperature of 98.2, pulse 87, respirations 18, blood pressure 146/68. WBCs 8.5, hemoglobin 12.9, creatinine 2.0 (unknown baseline). Lactate 1.6, initial troponin negative. Patient started on vancomycin and Zosyn and admitted for cellulitis. Allergies: None Surgical history: None Family history: No history of diabetes or high blood pressure Social history: Denies history of tobacco, alcohol, or drug use Medications: Reviewed Allergies: Coded Allergies: No Known Allergies (Unverified , 03/11/19) Medication History Scheduled Aspirin* (Aspir 81*), 81 MG ORAL DAILY, (Reported) Doxycycline Monohydrate* (Doxycycline Monohydrate*), 100 MG ORAL TWICE A DAY Escitalopram Oxalate (Lexapro), 40 MG ORAL DAILY, (Reported) Furosemide* (Lasix*), 20 MG ORAL DAILY, (Reported) Guaifenesin/Dextromethorphan (Hm Adult Tussin Dm Syrup), 5 ML PO Q6HR Lidocaine Patch* (Lidoderm Patch*), 1 PATCH TOPIC DAILY Lovastatin (Lovastatin), 40 MG ORAL BEDTIME, (Reported) Nebivolol Hcl (Bystolic), 20 MG ORAL DAILY, (Reported) Tramadol Hcl (Tramadol Hcl), 100 MG ORAL DAILY, (Reported) Scheduled PRN Hydrocodone Bit/Acetaminophen 5-325* (Trona 5-325*), 1 TAB ORAL Q6H PRN for For Pain, (Reported) Oxycodone/Acetaminophen 5-325* (Percocet 5-325 Mg Tablet*), 1 TAB ORAL BID PRN for Severe Breakthru Pain (>7) Miscellaneous Medications Clonidine Hcl (Clonidine Hcl), 0.2 MG PO, (Reported) Hydralazine Hcl (Hydralazine Hcl), 25 MG IJ, (Reported) Metolazone (Metolazone), 2.5 MG PO, (Reported) Spironolactone, Micronized (Spironolactone), 25 MG MC, (Reported) Patient History Healthcare decision maker Resuscitation status Full code Advanced Directive on File none Review of Systems Constitutional: Denies: see HPI, chills, sweats, fever, malaise, weakness, other Eye: Denies: see HPI, eye pain, blurred vision, tearing, double vision, nose pain, nose congestion, acuity changes, discharge, other ENT: Denies: see HPI, ear pain, ear discharge, nose pain, nose congestion, throat pain, throat swelling, mouth pain, hearing loss, nasal discharge, other Respiratory: Denies: see HPI, cough, orthopnea, shortness of breath, stridor, wheezing, AVILES, sputum, other Cardiovascular: Denies: see HPI, chest pain, edema, palpitations, syncope, PND , other Gastrointestinal: Denies: see HPI, abdominal pain, constipation, diarrhea, nausea, vomiting, melena, hematemesis, other Genitourinary: Denies: see HPI, discharge, dysuria, frequency, hematuria, pain , retention, incontinence, urgency, vag bleed/dc, other Musculoskeletal: Denies: see HPI, back pain, gout, joint pain, joint swelling, muscle pain, muscle stiffness, other Skin: Reports: other - Rash on right shoulder; Denies: see HPI, rash, change in color, change in hair/nails, dryness, lesions Psychiatric: Denies: see HPI, prior hx, anxiety, depressed feelings, emotional problems, SI, HI, hallucinations, other Neurological: Denies: see HPI, headache, numbness, paresthesia, seizure, tingling, tremors, focal weakness, syncope, dizziness, other Endocrine: Denies: see HPI, excessive sweating, flushing, intolerance to temperature, increased thirst, increased urine, unexplained weight loss, other Hematologic/Lymphatic: Denies: see HPI, anemia, blood clots, easy bleeding, easy bruising, swollen glands, diathesis, other Physical Exam General Appearance: WD/WN, no apparent distress, alert HEENT: normocephalic, atraumatic, anicteric Neck: non-tender, normal alignment, supple Respiratory/Chest: chest wall non-tender, lungs clear, normal breath sounds, no respiratory distress Cardiovascular/Chest: normal peripheral pulses, normal rate, regular rhythm, no JVD Abdomen: normal bowel sounds, non tender, soft, no organomegaly, no mass Extremities: normal range of motion, non-tender, normal inspection, other Skin Exam: other - The area of erythema, warmth, on right lateral shoulder, with one area that appears to be draining a serous fluid. No fluctuance or crepitus noted. Ecchymoses throughout upper and lower extremities Neurologic: co founder and director II-XII grossly normal, no motor/sensory deficits, alert, oriented x 3, responsive Lymphatic: anterior cervical - No lymphadenopathy Last 24 Hour Vital Signs Date Time Temp Pulse Resp B/P (MAP) Pulse Ox O2 Delivery O2 Flow Rate FiO2 03/12/19 04:08 97.3 77 18 135/66 (89) 94 03/12/19 01:07 Room Air 03/11/19 22:38 140/63 03/11/19 20:57 97.9 85 20 140/63 (88) 95 03/11/19 20:10 98.2 80 18 135/70 98 Room Air 03/11/19 16:45 98.2 80 18 135/70 98 Room Air 03/11/19 16:38 98.2 87 18 146/68 (94) 98 Room Air Intake and Output 03/11/19 03/12/19 19:00 07:00 Intake Total 250 ml Balance 250 ml Intake Oral 250 ml # Voids 4 Laboratory Tests Test 03/11/19 17:20 03/11/19 18:20 03/12/19 06:10 White Blood Count 8.5 K/UL (4.8-10.8) Pending Red Blood Count 3.95 M/UL (4.20-5.40) L Pending Hemoglobin 12.9 G/DL (12.0-16.0) Pending Hematocrit 36.0 % (37.0-47.0) L Pending Mean Corpuscular Volume 91 FL (80-99) Pending Mean Corpuscular Hemoglobin 32.5 PG (27.0-31.0) H Pending Mean Corpuscular Hemoglobin Concent 35.7 G/DL (32.0-36.0) Pending Red Cell Distribution Width 12.9 % (11.6-14.8) Pending Platelet Count 191 K/UL (150-450) Pending Mean Platelet Volume 7.1 FL (6.5-10.1) Pending Neutrophils (%) (Auto) 62.2 % (45.0-75.0) Pending Lymphocytes (%) (Auto) 19.9 % (20.0-45.0) L Pending Monocytes (%) (Auto) 12.6 % (1.0-10.0) H Pending Eosinophils (%) (Auto) 4.0 % (0.0-3.0) H Pending Basophils (%) (Auto) 1.3 % (0.0-2.0) Pending Prothrombin Time 10.0 SEC (9.30-11.50) Prothromb Time International Ratio 0.9 (0.9-1.1) Activated Partial Thromboplast Time 18 SEC (23-33) L Sodium Level 139 MMOL/L (136-145) 142 MMOL/L (136-145) Potassium Level 4.0 MMOL/L (3.5-5.1) 2.9 MMOL/L (3.5-5.1) L Chloride Level 98 MMOL/L (98-107) 100 MMOL/L (98-107) Carbon Dioxide Level 32 MMOL/L (21-32) 33 MMOL/L (21-32) H Anion Gap 10 mmol/L (5-15) 9 mmol/L (5-15) Blood Urea Nitrogen 97 mg/dL (7-18) H 87 mg/dL (7-18) H Creatinine 2.0 MG/DL (0.55-1.30) H 2.1 MG/DL (0.55-1.30) H Estimat Glomerular Filtration Rate mL/min (>60) mL/min (>60) Glucose Level 132 MG/DL (74-106) H 111 MG/DL (74-106) H Lactic Acid Level 1.60 mmol/L (0.4-2.0) Calcium Level 9.4 MG/DL (8.5-10.1) 8.8 MG/DL (8.5-10.1) Magnesium Level 2.5 MG/DL (1.8-2.4) H 2.3 MG/DL (1.8-2.4) Total Bilirubin 0.5 MG/DL (0.2-1.0) Aspartate Amino Transf (AST/SGOT) 28 U/L (15-37) Alanine Aminotransferase (ALT/SGPT) 29 U/L (12-78) Alkaline Phosphatase 40 U/L (46-116) L Total Creatine Kinase 24 U/L (26-308) L Troponin I 0.001 ng/mL (0.000-0.056) Pro-B-Type Natriuretic Peptide 1067 pg/mL (0-125) H Total Protein 6.7 G/DL (6.4-8.2) Albumin 3.9 G/DL (3.4-5.0) Globulin 2.8 g/dL Albumin/Globulin Ratio 1.4 (1.0-2.7) Urine Color Pale yellow Urine Appearance Clear Urine pH 6 (4.5-8.0) Urine Specific [place] 1.010 (1.005-1.035) Urine Protein Negative (NEGATIVE) Urine Glucose (UA) Negative (NEGATIVE) Urine Ketones Negative (NEGATIVE) Urine Blood Negative (NEGATIVE) Urine Nitrite Negative (NEGATIVE) Urine Bilirubin Negative (NEGATIVE) Urine Urobilinogen Normal MG/DL (0.0-1.0) Urine Leukocyte Esterase 1+ (NEGATIVE) H Urine RBC 0 /HPF (0 - 2) Urine WBC 0-2 /HPF (0 - 2) Urine Squamous Epithelial Cells None /LPF (NONE/OCC) Urine Bacteria None /HPF (NONE) Phosphorus Level 4.3 MG/DL (2.5-4.9) Height (Feet): 4 Height (Inches): 9.00 Weight (Pounds): 173 Medications Current Medications Medications (Trade) Dose Ordered Sig/Marnie Route PRN Reason Start Time Stop Time Status Last Admin Dose Admin Acetaminophen/ Hydrocodone Bitart ([place]ron[place] 5/325) 1 tab Q6H PRN ORAL For Pain 03/11/19 20:00 03/18/19 19:59 Aspirin (Ecotrin) 81 mg DAILY ORAL 03/12/19 09:00 04/11/19 08:59 Atorvastatin Calcium (Lipitor) 20 mg BEDTIME ORAL 03/11/19 21:00 04/10/19 20:59 03/11/19 22:28 Clonidine HCl (Catapres tab) 0.2 mg BEDTIME ORAL 03/11/19 22:30 04/10/19 22:29 03/11/19 22:38 Dextrose (Dextrose 50%) 25 ml Q30M PRN IV Hypoglycemia 03/11/19 20:15 04/10/19 20:14 Dextrose (Dextrose 50%) 50 ml Q30M PRN IV Hypoglycemia 03/11/19 20:15 04/10/19 20:14 Escitalopram Oxalate (Lexapro) 20 mg DAILY ORAL 03/12/19 09:00 04/11/19 08:59 Furosemide (Lasix) 20 mg DAILY ORAL 03/12/19 09:00 04/11/19 08:59 Guaifenesin/ Dextromethorphan (Robitussin DM Syrup) 5 ml Q6H PRN ORAL cough 03/11/19 20:00 04/10/19 19:59 Metolazone (Zaroxolyn) 2.5 mg DAILY ORAL 03/12/19 09:00 04/11/19 08:59 Nebivolol (Bystolic) 20 mg DAILY ORAL 03/12/19 09:00 04/11/19 08:59 Oxycodone/ Acetaminophen (Percocet 5-325) 1 tab BIDPRN PRN ORAL Severe Breakthru Pain (>7) 03/11/19 20:00 03/18/19 19:59 Piperacillin Sod/ Tazobactam Sod 3.375 gm/Sodium Chloride 110 ml @ 27.5 mls/hr Q12HR IVPB 03/12/19 09:00 03/19/19 08:59 Vancomycin HCl (Vanco rx to dose) 1 ea DAILY PRN MISC Per rx protocol 03/11/19 20:00 04/10/19 19:59 Assessment/Plan Problem List: (1) Cellulitis of right shoulder ICD Codes: L03.113 - Cellulitis of right upper limb SNOMED: 56981827468547751 (2) Multiple bruises ICD Codes: T07.XXXA - Unspecified multiple injuries, initial encounter SNOMED: 987388857 (3) Renal insufficiency ICD Codes: N28.9 - Disorder of kidney and ureter, unspecified SNOMED: 845950438, 664391968 (4) Right heart failure ICD Codes: I50.810 - Right heart failure, unspecified SNOMED: 042832783 Qualifiers: Qualified Codes: I50.812 - Chronic right heart failure Assessment/Plan: This is a 88-year-old female with a past medical history of rheumatoid arthritis , CKD, HTN, cor pulmonale who presented to [facility] for right shoulder cellulitis. #Right shoulder cellulitis. Appears to have purulence. Failed outpatient Keflex. Needs IV antibiotics. Doubt necrotizing fasciitis. No sirs criteria #Multiple ecchymoses throughout upper and lower extremities -Admit to MedSurg -Blood cultures x2 -Ultrasound of right shoulder to evaluate for abscess -X-ray of right shoulder to evaluate for gas -Vancomycin per pharmacy (03/12/19 - ) -Zosyn (03/12/19 - ) -Appreciate general surgery recommendations: Dr. Rizo #Cor pulmonale. Unclear etiology. Stable #Chronic lower extremity swelling secondary to cor pulmonale #HTN -Outpatient follow-up with cardiology. Continue all home meds -Continue home torsemide 40 mg p.o. every morning -Continue home hydralazine 25 mg po QAM -Spironolactone 25mg PO QAM -Metolazone 2.5mg PO Three times per week -ASA 81mg PO daily -Lovastatin 40mg PO QHS -Bystolic 20mg PO QHS -Clonidine 0.2mg PO QHS #Anxiety/depression -Continue Lexapro 40 mg p.o. daily #hypokalemia - replete PRN #Likely CKD. Unknown baseline -continue to monitor -avoid nephrotoxins FENPPX DVTPPX: heparin SQ GI PPX: None needed Fluids: None Diet: Cardiac, 1L fluid restrict (per caregiver) Lines: peripheral PT/OT: pending Code status: Full Dispo: Home with home health Reason for Continued Hospitalization: Cellulitis 72 minutes spent on this encounter. Discussed with RN, patient, caregiver at bedside, and general surgery. > 50% spent on counseling and care coordination. Time of note may not reflect time patient was seen. Nnamdi Alaniz D.O. Mar 12, 2019 08:46
[2019-03-12] MEDS ORDERED: metOLazone 2.5 MG TAB ORAL SCH (09:00)
[2019-03-12] MEDS: Aspirin EC 81mg tab ORAL SCH (09:00)
--- NOTE | 2019-03-12 10:20 | Diagnostic Imaging Report ---
Indication: Reason For Exam: CP Technique: Single AP view of the chest. Comparison: CT chest dated 10/11/2018 Findings: Limited examination due to poor penetration. The cardiomediastinal silhouette is within normal limits. There is elevation of the right hemidiaphragm. Low lung volumes leading to bronchovascular crowding. Likely bibasilar subsegmental atelectasis. No pneumothorax. No large pleural effusion. No acute osseous abnormality. IMPRESSION: Limited examination due to respiration and poor penetration. Likely bibasilar subsegmental atelectasis.
[2019-03-12] MEDS: Zosyn 3.375gm q12h **Extended infusion IVPB SCH ×4 (10:22→21:11)
--- NOTE | 2019-03-12 11:22 | Diagnostic Imaging Report ---
INDICATION: Pain TECHNIQUE: XRAY Shoulder Ltd 1v R Multiple views of the right shoulder were obtained COMPARISON: CT chest dated 10/11/2018 FINDINGS: There is no acute fracture. There is superior displacement of the humeral head with respect to the glenoid. Acromioclavicular joint is maintained. Visualized right lung is clear. No acute soft tissue abnormality. Partially evaluated inferior right anterior rib deformities, likely secondary to old trauma. IMPRESSION: No acute fracture or dislocation. High riding humeral head is often associated with rotator cuff injury. Clinical correlation is recommended.
[2019-03-12] MEDS: HydrALAZINE 25mg tab ORAL SCH (13:23)
--- NOTE | 2019-03-12 13:58 | Consultation ---
History of Present Illness General Date patient seen: Mar 12, 2019 Reason for Hospitalization: Skin Rash/Abscess Present Illness HPI This is a 88-year-old female with multiple medical comorbidities who presents with her daughter to [facility] for evaluation of right upper extremity cellulitis/skin rash/pain and edema and hematoma. Patient was admitted for care and management. On admission was identified to have draining right upper extremity with abnormal skin discoloration, complaints of itchiness , tenderness. Surgery was called to evaluate and assist with care. Patient seen, patient evaluated, chart reviewed. In discussing with the patient and her family member in regards to trauma they deny any recent trauma to the extremity. I asked them when this is first noted and they stated that she was at her primary care physician's office where the blood pressure cuff was placed and she felt it was too tight and in excruciating pain and soon after began to develop ecchymosis of the right upper extremity with some edema. Furthermore states she had some blood drawn from that same extremity as well. No nausea vomiting fever chills. Is not on any blood thinners but on aspirin which is been stopped since. States that her skin is very dry and itchy and this is likely secondary to her diuretics. Allergies: Coded Allergies: No Known Allergies (Unverified , 03/11/19) Medication History Scheduled Aspirin* (Aspir 81*), 81 MG ORAL DAILY, (Reported) Doxycycline Monohydrate* (Doxycycline Monohydrate*), 100 MG ORAL TWICE A DAY Escitalopram Oxalate (Lexapro), 40 MG ORAL DAILY, (Reported) Furosemide* (Lasix*), 20 MG ORAL DAILY, (Reported) Guaifenesin/Dextromethorphan (Hm Adult Tussin Dm Syrup), 5 ML PO Q6HR Lidocaine Patch* (Lidoderm Patch*), 1 PATCH TOPIC DAILY Lovastatin (Lovastatin), 40 MG ORAL BEDTIME, (Reported) Nebivolol Hcl (Bystolic), 20 MG ORAL DAILY, (Reported) Tramadol Hcl (Tramadol Hcl), 100 MG ORAL DAILY, (Reported) Scheduled PRN Hydrocodone Bit/Acetaminophen 5-325* ([place] 5-325*), 1 TAB ORAL Q6H PRN for For Pain, (Reported) Oxycodone/Acetaminophen 5-325* (Percocet 5-325 Mg Tablet*), 1 TAB ORAL BID PRN for Severe Breakthru Pain (>7) Miscellaneous Medications Clonidine Hcl (Clonidine Hcl), 0.2 MG PO, (Reported) Hydralazine Hcl (Hydralazine Hcl), 25 MG IJ, (Reported) Metolazone (Metolazone), 2.5 MG PO, (Reported) Spironolactone, Micronized (Spironolactone), 25 MG MC, (Reported) Patient History History Provided By: Patient, Family Member, Medical Record, PMD Healthcare decision maker Resuscitation status Advanced Directive on File Past Medical/Surgical History Past Medical/Surgical History: (1) Rib fracture (2) Contusion (3) Fall (4) Hematoma (5) Sore throat (6) Atypical pneumonia (7) Multiple bruises (8) Renal insufficiency (9) Right heart failure (10) Cellulitis of right shoulder Review of Systems Review of Symptoms General ROS: no weight loss or fever Psychological ROS: no depression or mood changes, no memory loss Ophthalmic ROS: no visual changes or eye irritation ENT ROS: no nasal congestion, hearing loss, dizziness Allergy and Immunology ROS: no allergic symptoms or urticaria Hematological and Lymphatic ROS: no swollen glands, unusual bleeding or bruising Endocrine ROS: no polyuria, polydipsia, weight changes, temperature intolerance Respiratory ROS: no cough, shortness of breath, or wheezing Cardiovascular ROS: no chest pain or dyspnea on exertion Gastrointestinal ROS: denies abdominal pain, bright red blood in stool. Musculoskeletal ROS: no myalgias or arthralgias Neurological ROS: no TIA or stroke symptoms Dermatological ROS: no new or changing skin lesions, +++rashes +++pruritis Physical Exam Physical Exam General appearance: alert, cooperative, no distress, appears stated age Head: Normocephalic, without obvious abnormality, atraumatic Eyes: conjunctivae/corneas clear. PERRL, EOM's intact. Fundi benign Throat: Lips, mucosa, and tongue normal. Teeth and gums normal Neck: supple, symmetrical, trachea midline, no adenopathy, thyroid: not enlarged, symmetric, no tenderness/mass/nodules, no carotid bruit and no JVD Lungs: clear to auscultation bilaterally Heart: regular rate and rhythm, S1, S2 normal, no murmur, click, rub or gallop Abdomen: soft, non-tender. Bowel sounds normal. No masses, no organomegaly Extremities: extremities RUE traumatic, no cyanosis ++ edema Pulses: 2+ and symmetric Skin: Skin rashes and ecchymosis Neurologic: Grossly normal Last 24 Hour Vital Signs Date Time Temp Pulse Resp B/P (MAP) Pulse Ox O2 Delivery O2 Flow Rate FiO2 03/12/19 13:23 120/56 03/12/19 13:09 74 120/56 (77) 03/12/19 12:00 97.3 76 18 133/67 (89) 96 03/12/19 10:15 71 154/66 (95) 03/12/19 08:00 97.9 63 18 147/66 (93) 93 03/12/19 04:08 97.3 77 18 135/66 (89) 94 03/12/19 01:07 Room Air 03/11/19 22:38 140/63 03/11/19 20:57 97.9 85 20 140/63 (88) 95 03/11/19 20:10 98.2 80 18 135/70 98 Room Air 03/11/19 16:45 98.2 80 18 135/70 98 Room Air 03/11/19 16:38 98.2 87 18 146/68 (94) 98 Room Air Intake and Output 03/11/19 03/12/19 19:00 07:00 Intake Total 250 ml Balance 250 ml Intake Oral 250 ml # Voids 4 Laboratory Tests Test 03/11/19 17:20 03/11/19 18:20 03/12/19 06:10 White Blood Count 8.5 K/UL (4.8-10.8) 6.9 K/UL (4.8-10.8) Red Blood Count 3.95 M/UL (4.20-5.40) L 3.41 M/UL (4.20-5.40) L Hemoglobin 12.9 G/DL (12.0-16.0) 10.9 G/DL (12.0-16.0) L Hematocrit 36.0 % (37.0-47.0) L 31.1 % (37.0-47.0) L Mean Corpuscular Volume 91 FL (80-99) 91 FL (80-99) Mean Corpuscular Hemoglobin 32.5 PG (27.0-31.0) H 31.9 PG (27.0-31.0) H Mean Corpuscular Hemoglobin Concent 35.7 G/DL (32.0-36.0) 34.9 G/DL (32.0-36.0) Red Cell Distribution Width 12.9 % (11.6-14.8) 12.8 % (11.6-14.8) Platelet Count 191 K/UL (150-450) 156 K/UL (150-450) Mean Platelet Volume 7.1 FL (6.5-10.1) 7.1 FL (6.5-10.1) Neutrophils (%) (Auto) 62.2 % (45.0-75.0) 57.6 % (45.0-75.0) Lymphocytes (%) (Auto) 19.9 % (20.0-45.0) L 21.3 % (20.0-45.0) Monocytes (%) (Auto) 12.6 % (1.0-10.0) H 15.0 % (1.0-10.0) H Eosinophils (%) (Auto) 4.0 % (0.0-3.0) H 5.3 % (0.0-3.0) H Basophils (%) (Auto) 1.3 % (0.0-2.0) 0.8 % (0.0-2.0) Prothrombin Time 10.0 SEC (9.30-11.50) Prothromb Time International Ratio 0.9 (0.9-1.1) Activated Partial Thromboplast Time 18 SEC (23-33) L Sodium Level 139 MMOL/L (136-145) 142 MMOL/L (136-145) Potassium Level 4.0 MMOL/L (3.5-5.1) 2.9 MMOL/L (3.5-5.1) L Chloride Level 98 MMOL/L (98-107) 100 MMOL/L (98-107) Carbon Dioxide Level 32 MMOL/L (21-32) 33 MMOL/L (21-32) H Anion Gap 10 mmol/L (5-15) 9 mmol/L (5-15) Blood Urea Nitrogen 97 mg/dL (7-18) H 87 mg/dL (7-18) H Creatinine 2.0 MG/DL (0.55-1.30) H 2.1 MG/DL (0.55-1.30) H Estimat Glomerular Filtration Rate mL/min (>60) mL/min (>60) Glucose Level 132 MG/DL (74-106) H 111 MG/DL (74-106) H Lactic Acid Level 1.60 mmol/L (0.4-2.0) Calcium Level 9.4 MG/DL (8.5-10.1) 8.8 MG/DL (8.5-10.1) Magnesium Level 2.5 MG/DL (1.8-2.4) H 2.3 MG/DL (1.8-2.4) Total Bilirubin 0.5 MG/DL (0.2-1.0) Aspartate Amino Transf (AST/SGOT) 28 U/L (15-37) Alanine Aminotransferase (ALT/SGPT) 29 U/L (12-78) Alkaline Phosphatase 40 U/L (46-116) L Total Creatine Kinase 24 U/L (26-308) L Troponin I 0.001 ng/mL (0.000-0.056) Pro-B-Type Natriuretic Peptide 1067 pg/mL (0-125) H Total Protein 6.7 G/DL (6.4-8.2) Albumin 3.9 G/DL (3.4-5.0) Globulin 2.8 g/dL Albumin/Globulin Ratio 1.4 (1.0-2.7) Urine Color Pale yellow Urine Appearance Clear Urine pH 6 (4.5-8.0) Urine Specific [place] 1.010 (1.005-1.035) Urine Protein Negative (NEGATIVE) Urine Glucose (UA) Negative (NEGATIVE) Urine Ketones Negative (NEGATIVE) Urine Blood Negative (NEGATIVE) Urine Nitrite Negative (NEGATIVE) Urine Bilirubin Negative (NEGATIVE) Urine Urobilinogen Normal MG/DL (0.0-1.0) Urine Leukocyte Esterase 1+ (NEGATIVE) H Urine RBC 0 /HPF (0 - 2) Urine WBC 0-2 /HPF (0 - 2) Urine Squamous Epithelial Cells None /LPF (NONE/OCC) Urine Bacteria None /HPF (NONE) Phosphorus Level 4.3 MG/DL (2.5-4.9) Height (Feet): 4 Height (Inches): 9.00 Weight (Pounds): 173 Medications Current Medications Medications (Trade) Dose Ordered Sig/Marnie Route PRN Reason Start Time Stop Time Status Last Admin Dose Admin Acetaminophen/ Hydrocodone Bitart ([place] 5/325) 1 tab Q6H PRN ORAL For Pain 03/11/19 20:00 03/18/19 19:59 Aspirin (Ecotrin) 81 mg DAILY ORAL 03/12/19 09:00 04/11/19 08:59 Atorvastatin Calcium (Lipitor) 20 mg BEDTIME ORAL 03/11/19 21:00 04/10/19 20:59 03/11/19 22:28 Clonidine HCl (Catapres tab) 0.2 mg BEDTIME ORAL 03/11/19 22:30 04/10/19 22:29 03/11/19 22:38 Dextrose (Dextrose 50%) 25 ml Q30M PRN IV Hypoglycemia 03/11/19 20:15 04/10/19 20:14 Dextrose (Dextrose 50%) 50 ml Q30M PRN IV Hypoglycemia 03/11/19 20:15 04/10/19 20:14 Escitalopram Oxalate (Lexapro) 40 mg DAILY ORAL 03/13/19 09:00 04/12/19 08:59 Guaifenesin/ Dextromethorphan (Robitussin DM Syrup) 5 ml Q6H PRN ORAL cough 03/11/19 20:00 04/10/19 19:59 Hydralazine HCl (Apresoline) 25 mg DAILY ORAL 03/12/19 12:30 04/11/19 12:29 03/12/19 13:23 Metolazone (Zaroxolyn) 2.5 mg 3XW ORAL 03/13/19 09:00 04/12/19 08:59 Nebivolol (Bystolic) 20 mg QHS ORAL 03/13/19 21:00 04/12/19 20:59 Oxycodone/ Acetaminophen (Percocet 5-325) 1 tab BIDPRN PRN ORAL Severe Breakthru Pain (>7) 03/11/19 20:00 03/18/19 19:59 Piperacillin Sod/ Tazobactam Sod 3.375 gm/Sodium Chloride 110 ml @ 27.5 mls/hr Q12HR IVPB 03/12/19 09:00 03/19/19 08:59 03/12/19 10:22 Spironolactone (Aldactone) 25 mg DAILY ORAL 03/12/19 13:00 04/11/19 12:59 Torsemide (Demadex) 40 mg DAILY ORAL 03/13/19 09:00 04/12/19 08:59 Vancomycin HCl (Vanco rx to dose) 1 ea DAILY PRN MISC Per rx protocol 03/11/19 20:00 04/10/19 19:59 Assessment/Plan Problem List: (1) Multiple bruises Assessment & Plan: fragile skin avoid trauma skin protectant ICD Codes: T07.XXXA - Unspecified multiple injuries, initial encounter SNOMED: 920271708 (2) Cellulitis of right shoulder Assessment & Plan: This is a 88-year-old female presents with cellulitis of the right shoulder and upper extremity. Initially thought to be from a traumatic extensive blood pressure obtained in her physician's office. Patient and daughter expressed that she is very fragile thin skin and with the slightest manipulation or injury she develops ecchymosis. She is very fragile. She states that when the blood pressure cuff was placed it was too tight and ever since she has had edema and ecchymosis. There is some small blistering and draining believed to be possible cellulitis. On examination no significant tenderness some edema some ecchymosis but no signs of active infectious process. Labs noted Exam as above Plain films Local wound care with Thera honey and dressings Keep right upper extremity elevated Thank you for allowing me to participate in patient's care will follow the recommendations ICD Codes: L03.113 - Cellulitis of right upper limb SNOMED: 98165591961307268 Ney Rizo Mar 12, 2019 13:58
[2019-03-12] MEDS: Spironolactone 25mg tab ORAL SCH (15:01)
--- NOTE | 2019-03-12 18:00 | NUR ---
NURSE NOTES: Patient resting,right arm elevated on pillow.Bed alarm on,call light within reach.
--- NOTE | 2019-03-12 19:23 | NUR ---
HAND-OFF: Report given to Joanne GONZALEZ.
--- NOTE | 2019-03-12 20:01 | NUR ---
NURSE NOTES: Received patient awake in bed, caregiver iglesia at the bedside. Belongings and walker within reach. Yellow socks on, bed low and locked. IV access asymptomatic, patent, dressing dry and intact. Contacted Dr Alaniz for benadryl as patient is complaining of itchiness on cellulitis site.
[2019-03-12] MEDS: Heparin 5000 units/ml inj SUBQ SCH (21:00)
[2019-03-12] MEDS: cloNIDine 0.2mg Tab ORAL SCH (21:11)
[2019-03-12] MEDS: Atorvastatin 20mg tab ORAL SCH (21:11)
[2019-03-12] MEDS ORDERED: Vancomycin 750mg/NS 275ml IVPB ONE ×2 (23:00)
[2019-03-13] VITALS: BP 130/72
[2019-03-13 04:00] VITALS: BP 128/67
--- NOTE | 2019-03-13 07:03 | NUR ---
HAND-OFF: Report given to LISA Palmer.
[2019-03-13 07:24] LABS: BASOPHILS % (AUTO) 1.1 % (0.0-2.0); EOSINOPHILS % (AUTO) 5.8 % (0.0-3.0); HEMATOCRIT 32.8 % (37.0-47.0); HEMOGLOBIN 11.3 G/DL (12.0-16.0); LYMPHOCYTES % (AUTO) 24.2 % (20.0-45.0); MEAN CORPUSCULAR VOLUME 93 FL (80-99); MONOCYTES % (AUTO) 15.9 % (1.0-10.0); PLATELET COUNT 162 K/UL (150-450); RED BLOOD COUNT 3.52 M/UL (4.20-5.40); RED CELL DISTRIBUTION WIDTH 14.2 % (11.6-14.8); WHITE BLOOD COUNT 7.2 K/UL (4.8-10.8)
--- NOTE | 2019-03-13 07:36 | NUR ---
NURSE NOTES: Patient received sleeping in bed, breathing unlabored on room air. No signs of apparent distress observed. IV on left wrist patent and intact. Walker by the bedside. Call light placed within reach, hob elevated. Bed locked in lowest position, will continue to monitor.
[2019-03-13 07:43] LABS: ANION GAP 4 mmol/L (5-15); BLOOD UREA NITROGEN 73 mg/dL (7-18); CALCIUM 8.9 MG/DL (8.5-10.1); CARBON DIOXIDE 34 MMOL/L (21-32); CHLORIDE 106 MMOL/L (98-107); POTASSIUM 3.4 MMOL/L (3.5-5.1); SODIUM 143 MMOL/L (136-145)
[2019-03-13 08:00] VITALS: BP 130/83
[2019-03-13] MEDS: Zosyn 3.375gm q12h **Extended infusion IVPB SCH ×2 (08:49)
[2019-03-13] MEDS ORDERED: Torsemide 10mg tab ORAL SCH (09:00)
[2019-03-13] MEDS ORDERED: metOLazone 2.5 MG TAB ORAL SCH (09:00)
[2019-03-13] MEDS: Aspirin EC 81mg tab ORAL SCH (09:07)
[2019-03-13] MEDS: Spironolactone 25mg tab ORAL SCH (09:08)
[2019-03-13] MEDS: HydrALAZINE 25mg tab ORAL SCH (09:08)
[2019-03-13] MEDS: Heparin 5000 units/ml inj SUBQ SCH ×2 (09:26→20:41)
--- NOTE | 2019-03-13 11:01 | Surgery Progress Note ---
Surgery Progress Note Subjective Additional Comments Patient seen and examined bedside with daughter present. Ultrasound performed this morning and no significant findings found. No leukocytosis ESR and CRP noted. Full reexamination performed at bedside with the daughter present. It is very interesting distribution of the wound noted on her right upper extremity and shoulder. And further identifying today the axilla medial aspect of the arm are spared. The area and concerns a little bit more red with superficial ecchymosis. After identifying all this information I discussed with the daughter potential sunburns creams or radiation being presented in the area. The daughter explained to me that the mother has many creams at home many of which are very old and have been for some time now. She believes that because the mother is always itching that she may have used some of these older creams. Objective Last 24 Hour Vital Signs Date Time Temp Pulse Resp B/P (MAP) Pulse Ox O2 Delivery O2 Flow Rate FiO2 03/13/19 09:08 130/83 03/13/19 08:00 97.3 79 19 130/83 (99) 98 03/13/19 04:00 98.4 85 18 128/67 (87) 97 03/13/19 00:00 97.9 82 18 130/72 (91) 97 03/12/19 22:11 Room Air 03/12/19 21:11 134/68 03/12/19 20:00 98.4 85 18 126/67 (86) 95 03/12/19 16:00 96.6 65 18 134/68 (90) 95 03/12/19 13:23 120/56 03/12/19 13:09 74 120/56 (77) 03/12/19 12:00 97.3 76 18 133/67 (89) 96 I&O Intake and Output 03/12/19 03/13/19 19:00 07:00 Intake Total 720 ml 650 ml Balance 720 ml 650 ml Intake Oral 720 ml 650 ml # Voids 2 6 Dressing: dry Wound: clean Cardiovascular: RSR Respiratory: clear Abdomen: soft, non-tender, present bowel sounds Extremities: no tenderness, no cyanosis Laboratory Tests Test 03/12/19 18:15 03/13/19 06:10 Random Vancomycin Level 15.8 ug/mL White Blood Count 7.2 K/UL (4.8-10.8) Red Blood Count 3.52 M/UL (4.20-5.40) L Hemoglobin 11.3 G/DL (12.0-16.0) L Hematocrit 32.8 % (37.0-47.0) L Mean Corpuscular Volume 93 FL (80-99) Mean Corpuscular Hemoglobin 32.1 PG (27.0-31.0) H Mean Corpuscular Hemoglobin Concent 34.5 G/DL (32.0-36.0) Red Cell Distribution Width 14.2 % (11.6-14.8) Platelet Count 162 K/UL (150-450) Mean Platelet Volume 7.7 FL (6.5-10.1) Neutrophils (%) (Auto) 53.0 % (45.0-75.0) Lymphocytes (%) (Auto) 24.2 % (20.0-45.0) Monocytes (%) (Auto) 15.9 % (1.0-10.0) H Eosinophils (%) (Auto) 5.8 % (0.0-3.0) H Basophils (%) (Auto) 1.1 % (0.0-2.0) Erythrocyte Sedimentation Rate 4 MM/HR (0-30) Sodium Level 143 MMOL/L (136-145) Potassium Level 3.4 MMOL/L (3.5-5.1) L Chloride Level 106 MMOL/L (98-107) Carbon Dioxide Level 34 MMOL/L (21-32) H Anion Gap 4 mmol/L (5-15) L Blood Urea Nitrogen 73 mg/dL (7-18) H Creatinine 2.0 MG/DL (0.55-1.30) H Estimat Glomerular Filtration Rate mL/min (>60) Glucose Level 120 MG/DL (74-106) H Calcium Level 8.9 MG/DL (8.5-10.1) C-Reactive Protein, Quantitative < 0.4 mg/dL (0.00-0.90) Plan Problems: (1) Multiple bruises Assessment & Plan: fragile skin avoid trauma skin protectant (2) Cellulitis of right shoulder Assessment & Plan: This is a 88-year-old female presents with cellulitis of the right shoulder and upper extremity. Initially thought to be from a traumatic extensive blood pressure obtained in her physician's office. Patient and daughter expressed that she is very fragile thin skin and with the slightest manipulation or injury she develops ecchymosis. She is very fragile. She states that when the blood pressure cuff was placed it was too tight and ever since she has had edema and ecchymosis. There is some small blistering and draining believed to be possible cellulitis. On examination no significant tenderness some edema some ecchymosis but no signs of active infectious process. Labs noted Exam as above Plain films Local wound care with Thera honey and dressings Likely related to skin reaction from medication/cream used prior. Ultrasound labs and imaging noted. Continue with localized skin care as this will likely improve given time. Recommended daughter to discard all or old creams and medicated products at home Keep right upper extremity elevated Thank you for allowing me to participate in patient's care will follow the recommendations Ney Rizo Mar 13, 2019 11:01
[2019-03-13 11:56] VITALS: BP 133/61
--- NOTE | 2019-03-13 12:20 | Diagnostic Imaging Report ---
Indication:Pain and swelling right upper arm Technique: Grayscale and duplex Doppler imaging of the right upper arm performed. Comparison: None Findings: There is clinical concern in the right upper arm anterior to the humerus as there was pain and swelling in this region. There is concern for infection. The ultrasound evaluation shows no evidence of underlying abscess. There may be some subcutaneous edema present. IMPRESSION: Generalized subcutaneous edema presumably on the basis of cellulitis. No abscess identified in the area of clinical concern.
--- NOTE | 2019-03-13 13:20 | NUR ---
NURSE NOTES:WOUND CARE NOTES: Pt presented on admission with large purpuric rash R clavicular extending down dorsal R upper extremity to dorsal R hand. Skin tear noted to R clavicle ,and second skin tear noted to R brachial. Pt stated skin tear R clavicle resulted when she bumped shoulder against door. Second skin tear R clavicle resulted from pt scratching per cab starter. Pt verbalized skin is very itchy. Similar purpuric areas noted to distal ingrid aspects of both R and L tibia. Tx.Plan: Addendum: 03/13/19 at 1345 by Caren Hercules LVN ADDENDUM TO ABOVE WOUND NOTES: Tx.Plan: Apply Aquaphor Oint to Rash R Shoulder, upper ext and bilat lower ext. Twice Daily.
--- NOTE | 2019-03-13 14:04 | General Progress Note ---
Assessment/Plan Problem List: (1) Multiple bruises ICD Codes: T07.XXXA - Unspecified multiple injuries, initial encounter SNOMED: 993451637 (2) Renal insufficiency ICD Codes: N28.9 - Disorder of kidney and ureter, unspecified SNOMED: 439739808, 852626178 (3) Right heart failure ICD Codes: I50.810 - Right heart failure, unspecified SNOMED: 693240031 Qualifiers: Qualified Codes: I50.812 - Chronic right heart failure (4) Contusion ICD Codes: T14.8XXA - Other injury of unspecified body region, initial encounter SNOMED: 470636656 (5) Cellulitis of right shoulder ICD Codes: L03.113 - Cellulitis of right upper limb SNOMED: 38584819875860937 Status: stable Assessment/Plan: This is a 88-year-old female with a past medical history of rheumatoid arthritis , CKD, HTN, cor pulmonale who [place] [facility] [place] cellulitis, ecchymosis, skin tears . #Right shoulder ecchymosis, small tear in skin, severe pruritus. Doubt infection #Multiple ecchymoses throughout upper and lower extremities -MedSurg -Blood cultures x2 -Ultrasound of right shoulder to evaluate for abscess--> Negative per Dr. Rizo -X-ray of right shoulder to evaluate for gas- unremarkable for gas -ESR, CRP negative -Vancomycin per pharmacy (03/12/19 - 03/13) -Zosyn (03/12/19 - 03/13) -Appreciate general surgery recommendations: Dr. iRzo -patient healthcare consulting manager instructed to throw old creams out -Wound care consult -will consider holding ASA -D/W Son Jareth [phone] #Cor pulmonale. Stable #Chronic lower extremity swelling secondary to cor pulmonale #HTN -Outpatient follow-up with cardiology. Continue all home meds -Continue home torsemide 40 mg p.o. every morning, reduce to 20 mg per day -Continue home hydralazine 25 mg po QAM -Spironolactone 25mg PO QAM -Metolazone 2.5mg PO Three times per week -ASA 81mg PO daily -Lovastatin 40mg PO QHS -Bystolic 20mg PO QHS -Clonidine 0.2mg PO QHS -order pr-bnp -review med interactions with pharmacy #Anxiety/depression -Continue Lexapro 40 mg p.o. daily #hypokalemia - replete PRN #Likely CKD. Unknown baseline -continue to monitor -avoid nephrotoxins FENPPX DVTPPX: heparin SQ GI PPX: None needed Fluids: None Diet: Cardiac, 1L fluid restrict (per caregiver) Lines: peripheral PT/OT: pending Code status: Full Dispo: Home with home health Reason for Continued Hospitalization: medication adjustment, general surgery evaluation of multiple wounds 40 minutes spent on this encounter. Discussed with RN, patient, caregiver at bedside, and general surgery. > 50% spent on counseling and care coordination. I spent an additional 31 minutes reviewing chart and old records Time of note may not reflect time patient was seen. Subjective Date patient seen: Mar 13, 2019 ROS Limited/Unobtainable: No Constitutional: Reports: other - very itchy skin ; Denies: no symptoms, chills , diaphoresis, fever, malaise, weakness HEENT: Denies: no symptoms, eye pain, blurred vision, tearing, double vision, ear pain, ear discharge, nose pain, nose congestion, throat pain, throat swelling, mouth pain, mouth swelling, other Cardiovascular: Reports: no symptoms, chest pain, irregular heart rate, lightheadedness, palpitations, syncope, other Respiratory: Denies: no symptoms, cough, SOB with excertion, SOB at rest, sputum, stridor, wheezing, other Gastrointestinal/Abdominal: Denies: no symptoms, abdomen distended, abdominal pain, black stools, tarry stools, blood in stool, constipated, diarrhea, difficulty swallowing, nausea, poor appetite, poor fluid intake, rectal bleeding , vomiting, other Genitourinary: Denies: no symptoms, burning, discharge, frequency, flank pain, hematuria, incontinence, pain, urgency, other Neurologic/Psychiatric: Denies: no symptoms, anxiety, depressed, emotional problems, headache, numbness, paresthesia, pre-existing deficit, seizure, tingling, tremors, weakness, other Endocrine: Denies: no symptoms, excessive sweating, flushing, intolerance to cold, intolerance to heat, increased hunger, increased thirst, increased urine, unexplained weight gain, unexplained weight loss, other Hematologic/Lymphatic: Denies: no symptoms, anemia, easy bleeding, easy bruising, other Allergies: Coded Allergies: No Known Allergies (Unverified , 03/11/19) Subjective seen and examined. correctional food service supervisor at bedside/ Patient c/o itching all over. Per healthcare consulting manager, patient stopped taking ASA due to all the bruises on her skin. Has been using creams that they has at home for itching Objective Last 24 Hour Vital Signs Date Time Temp Pulse Resp B/P (MAP) Pulse Ox O2 Delivery O2 Flow Rate FiO2 03/13/19 11:56 98.6 76 19 133/61 (85) 99 03/13/19 09:08 130/83 03/13/19 09:00 Room Air 03/13/19 08:00 97.3 79 19 130/83 (99) 98 03/13/19 04:00 98.4 85 18 128/67 (87) 97 03/13/19 00:00 97.9 82 18 130/72 (91) 97 03/12/19 22:11 Room Air 03/12/19 21:11 134/68 03/12/19 20:00 98.4 85 18 126/67 (86) 95 03/12/19 16:00 96.6 65 18 134/68 (90) 95 Intake and Output 03/12/19 03/13/19 19:00 07:00 Intake Total 720 ml 650 ml Balance 720 ml 650 ml Intake Oral 720 ml 650 ml # Voids 2 6 Laboratory Tests 03/12/19 18:15: Random Vancomycin Level 15.8 03/13/19 06:10: White Blood Count 7.2, Red Blood Count 3.52L, Hemoglobin 11.3L, Hematocrit 32.8L , Mean Corpuscular Volume 93, Mean Corpuscular Hemoglobin 32.1H, Mean Corpuscular Hemoglobin Concent 34.5, Red Cell Distribution Width 14.2, Platelet Count 162, Mean Platelet Volume 7.7, Neutrophils (%) (Auto) 53.0, Lymphocytes (% ) (Auto) 24.2, Monocytes (%) (Auto) 15.9H, Eosinophils (%) (Auto) 5.8H, Basophils (%) (Auto) 1.1, Erythrocyte Sedimentation Rate 4, Sodium Level 143, Potassium Level 3.4L, Chloride Level 106, Carbon Dioxide Level 34H, Anion Gap 4L , Blood Urea Nitrogen 73H, Creatinine 2.0H, Estimat Glomerular Filtration Rate , Glucose Level 120H, Calcium Level 8.9, C-Reactive Protein, Quantitative < 0.4 Height (Feet): 4 Height (Inches): 9.00 Weight (Pounds): 173 Objective General Appearance: WD/WN, no apparent distress, alert HEENT: normocephalic, atraumatic, anicteric Neck: non-tender, normal alignment, supple Respiratory/Chest: chest wall non-tender, lungs clear, normal breath sounds, no respiratory distress Cardiovascular/Chest: normal peripheral pulses, normal rate, regular rhythm, no JVD Abdomen: normal bowel sounds, non tender, soft, no organomegaly, no mass Extremities: normal range of motion, non-tender, normal inspection, other Skin Exam: large purpuric rash R clavicular extending down dorsal R upper extremity to dorsal R hand. Skin tear noted to R clavicle ,and second skin tear noted to R brachial. 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 Mar 13, 2019 14:04
[2019-03-13 15:50] VITALS: BP 126/59
--- NOTE | 2019-03-13 19:16 | NUR ---
HAND-OFF: Report given to Joanne GONZALEZ.
--- NOTE | 2019-03-13 19:45 | NUR ---
NURSE NOTES: Received patient awake in bed, caregiver Krystal at the bedside. Belongings and walker within reach. Yellow socks on, bed low and locked. IV access asymptomatic, patent, dressing dry and intact.
[2019-03-13 20:00] VITALS: BP 136/74
[2019-03-13] MEDS: cloNIDine 0.2mg Tab ORAL SCH (20:27)
[2019-03-13] MEDS: Atorvastatin 20mg tab ORAL SCH (20:27)
[2019-03-14] VITALS: BP 127/60
[2019-03-14 04:00] VITALS: BP 136/60
--- NOTE | 2019-03-14 07:27 | NUR ---
HAND-OFF: Report given to LISA Ritchie.
--- NOTE | 2019-03-14 07:31 | Cardiology Report ---
APPROVED REPORT EKG Measurement Heart [id number] 230P50 [id number] Sinus rhythm with 1st degree AV block Moderate voltage criteria for LVH, may be normal variant Borderline ECG
[2019-03-14 07:46] LABS: ALANINE AMINOTRANSFERASE 22 U/L (12-78); ALBUMIN 3.3 G/DL (3.4-5.0); ALBUMIN/GLOBULIN RATIO 1.3 (1.0-2.7); ALKALINE PHOSPHATASE 29 U/L (46-116); ANION GAP 9 mmol/L (5-15); ASPARTATE AMINO TRANSFERASE 27 U/L (15-37); BILIRUBIN,TOTAL 0.8 MG/DL (0.2-1.0); BLOOD UREA NITROGEN 67 mg/dL (7-18); CALCIUM 9.5 MG/DL (8.5-10.1); CARBON DIOXIDE 31 MMOL/L (21-32); CHLORIDE 103 MMOL/L (98-107); CREATININE 1.9 MG/DL (0.55-1.30); POTASSIUM 2.9 MMOL/L (3.5-5.1); SODIUM 143 MMOL/L (136-145)
[2019-03-14 08:00] VITALS: BP 139/62
--- NOTE | 2019-03-14 08:07 | NUR ---
NURSE NOTES: Patient awake, alert x3, hard of hearing; IV Left-Hand 24G, flushes well; Right hand ecchymosis; side rails up x2, breaks engaged, bed at lowest position; call light within reach; will keep monitoring;
[2019-03-14] MEDS: Aspirin EC 81mg tab ORAL SCH (08:35)
[2019-03-14] MEDS: Spironolactone 25mg tab ORAL SCH (08:35)
[2019-03-14] MEDS: HydrALAZINE 25mg tab ORAL SCH (08:36)
[2019-03-14] MEDS: Heparin 5000 units/ml inj SUBQ SCH (08:39)
[2019-03-14] MEDS ORDERED: Torsemide 10mg tab ORAL SCH (09:00)
[2019-03-14 12:00] VITALS: BP 126/62
[2019-03-14] MEDS ORDERED: TORSEMIDE10 MG ORAL (14:39)
--- NOTE | 2019-03-14 14:40 | Discharge Summary ---
Discharge Summary Hospital Course Date of Admission Mar 11, 2019 at 18:05 Date of Discharge 03/14/2019 Admitting Diagnosis cellulitis R shoulder HPI Sasha Crouch is a 88 year old female who was admitted on Mar 11, 2019 at 18: 05 for Cellulitis Right Shoulder Consultations General surgery: Dr. Rizo Procedures Ultrasound shoulder XR shoulder Hospital Course This is a 88-year-old female with a past medical history of rheumatoid arthritis , CKD, HTN, cor pulmonale who presented [place] [facility] [place] possible right shoulder cellulitis, ecchymosis, skin tears . #Right shoulder ecchymosis, small tear in skin, severe pruritus. Doubt severe infection, at most superficial cellulitis #Multiple ecchymoses throughout upper and lower extremities -MedSurg -Blood cultures x2 -Ultrasound of right shoulder to evaluate for abscess--> Negative per Dr. Rizo -X-ray of right shoulder to evaluate for gas- unremarkable for gas -ESR, CRP negative -Vancomycin per pharmacy (03/12/19 - 03/13) -Zosyn (03/12/19 - 03/13) -Appreciate general surgery recommendations: Dr. Rizo -patient animal care provider instructed to throw old creams out -Wound care consult -->Apply Aquaphor Oint to Rash R Shoulder, upper ext and bilat lower ext. Twice Daily -holding ASA -D/W Son Jareth [phone] -Dr. Rzio recs appreciated #Cor pulmonale. Stable- probnp 1000 #Chronic lower extremity swelling secondary to cor pulmonale #HTN -Outpatient follow-up with cardiology. Continue all home meds -Continue home torsemide 40 mg p.o. every morning, reduce to 20 mg per day -Continue home hydralazine 25 mg po QAM -Spironolactone 25mg PO QAM -Metolazone 2.5mg PO Three times per week -ASA 81mg PO daily, hold for extensive bruising -Lovastatin 40mg PO QHS -Bystolic 20mg PO QHS -Clonidine 0.2mg PO QHS -review med interactions with pharmacy #Anxiety/depression -Continue Lexapro 40 mg p.o. daily #hypokalemia - replete PRN, resume home 40 meq daily #Likely CKD. Unknown baseline -continue to monitor, stable -avoid nephrotoxins FENPPX DVTPPX: heparin SQ GI PPX: None needed Fluids: None Diet: Cardiac, 1L fluid restrict (per caregiver) Lines: peripheral PT/OT: pending Code status: Full Dispo: Home with home health (24 hour health aid) 40 minutes spent on this encounter. Discussed with RN, patient, caregiver at bedside, and general surgery. > 50% spent on counseling and care coordination. I spent an additional 31 minutes reviewing chart and old records Discharge Condition Upon Discharge: stable Discharge Disposition Patient was discharged to home Discharge Diagnoses: (1) Multiple bruises (2) Renal insufficiency (3) Right heart failure (4) Cellulitis of right shoulder Vel Thomas M.D. Mar 14, 2019 14:40
--- NOTE | 2019-03-14 14:53 | Surgery Progress Note ---
Surgery Progress Note Subjective Symptoms: improved, pain absent, tolerating diet, voiding well, passing flatus , BM Objective Last 24 Hour Vital Signs Date Time Temp Pulse Resp B/P (MAP) Pulse Ox O2 Delivery O2 Flow Rate FiO2 03/14/19 12:00 97.9 79 18 126/62 (83) 99 03/14/19 09:00 Room Air 03/14/19 08:36 139/62 03/14/19 08:00 97.9 57 19 139/62 (87) 95 03/14/19 04:00 97.8 65 20 136/60 (85) 94 03/14/19 00:00 97.7 77 20 127/60 (82) 94 03/13/19 22:35 Room Air 03/13/19 20:27 126/59 03/13/19 20:00 97.6 80 19 136/74 (94) 94 03/13/19 15:50 97.6 87 19 126/59 (81) 94 I&O Intake and Output 03/13/19 03/14/19 19:00 07:00 Intake Total 740 ml 200 ml Balance 740 ml 200 ml Intake Oral 740 ml 200 ml # Voids 9 3 # Bowel Movements 1 Dressing: dry Wound: clean Cardiovascular: RSR Respiratory: clear Abdomen: soft, flat, non-tender, present bowel sounds Extremities: no edema, no tenderness, no cyanosis, pulses, other Laboratory Tests Test 03/14/19 05:26 Sodium Level 143 MMOL/L (136-145) Potassium Level 2.9 MMOL/L (3.5-5.1) L Chloride Level 103 MMOL/L (98-107) Carbon Dioxide Level 31 MMOL/L (21-32) Anion Gap 9 mmol/L (5-15) Blood Urea Nitrogen 67 mg/dL (7-18) H Creatinine 1.9 MG/DL (0.55-1.30) H Estimat Glomerular Filtration Rate mL/min (>60) Glucose Level 108 MG/DL (74-106) H Calcium Level 9.5 MG/DL (8.5-10.1) Total Bilirubin 0.8 MG/DL (0.2-1.0) Aspartate Amino Transf (AST/SGOT) 27 U/L (15-37) Alanine Aminotransferase (ALT/SGPT) 22 U/L (12-78) Alkaline Phosphatase 29 U/L (46-116) L Pro-B-Type Natriuretic Peptide 1092 pg/mL (0-125) H Total Protein 5.9 G/DL (6.4-8.2) L Albumin 3.3 G/DL (3.4-5.0) L Globulin 2.6 g/dL Albumin/Globulin Ratio 1.3 (1.0-2.7) Random Vancomycin Level 16.8 ug/mL Plan Problems: (1) Multiple bruises Assessment & Plan: fragile skin avoid trauma skin protectant (2) Cellulitis of right shoulder Assessment & Plan: This is a 88-year-old female presents with cellulitis of the right shoulder and upper extremity. Initially thought to be from a traumatic extensive blood pressure obtained in her physician's office. Patient and daughter expressed that she is very fragile thin skin and with the slightest manipulation or injury she develops ecchymosis. She is very fragile. She states that when the blood pressure cuff was placed it was too tight and ever since she has had edema and ecchymosis. There is some small blistering and draining believed to be possible cellulitis. On examination no significant tenderness some edema some ecchymosis but no signs of active infectious process. Labs noted Exam as above Plain films Local wound care with Thera honey and dressings Likely related to skin reaction from medication/cream used prior. Ultrasound labs and imaging noted. Continue with localized skin care as this will likely improve given time. Recommended daughter to discard all or old creams and medicated products at home Keep right upper extremity elevated d/c f/u outpatient with PCP and derm / surgery Thank you for allowing me to participate in patient's care will follow the recommendations Ney Rizo Mar 14, 2019 14:53
[2019-03-14 16:00] VITALS: BP 140/68
--- NOTE | 2019-03-14 16:22 | NUR ---
NURSE NOTES: LEFT MSG TO [facility] SINCE [facility]IZ[facility] CAREGIVER NOT ANSWERING
--- NOTE | 2019-03-14 17:00 | NUR ---
NURSE NOTES: Patient left the floor around 1650, accompanied by patient's own personal resident care supervisor, Krystal and her ; patient left by wheelchair with nursing consultant Arian; patient's son Jareth is aware that patient is discharged; patient stable and IV and name tag removed upon discharge; printed material given to patient regarding this admission and when to seek medical help. Belonging list singed by patient's resident care supervisor, Krystal. Patient stable upon discharge.
== END 2019-03-14 17:01 | disposition home or self-care (01) | DRG 603 ==
LOC: EDBD 16:22 → EMR 18:04 → 4E 18:05 → EDBEDREQ 19:02
DX: L03.113 Cellulitis of right upper limb (principal); I13.0 Hypertensive heart and chronic kidney disease with heart failure and stage 1 through stage 4 chronic kidney disease, or unspecified chronic kidney disease; I50.810 Right heart failure, unspecified; N18.9 Chronic kidney disease, unspecified; I27.81 Cor pulmonale (chronic); M06.9 Rheumatoid arthritis, unspecified; F41.8 Other specified anxiety disorders; E87.6 Hypokalemia; S40.022A Contusion of left upper arm, initial encounter; S40.021A Contusion of right upper arm, initial encounter; S80.12XA Contusion of left lower leg, initial encounter; S80.11XA Contusion of right lower leg, initial encounter; X58.XXXA Exposure to other specified factors, initial encounter
CPT/HCPCS: 36415; 71045; 80048; 80053; 80202; 81003; 82550; 83605; 83735; 83880; 84100; 84484; 85025; 85610; 85651; 85730; 86140; 86850; 86900; 86901; 87040; 90471; 90715; 93005; 96365; 96367; 96375; 99285; J8499